=== PATIENT | female | born 1990 | race African-American/Black ===

== ENCOUNTER 2017-06-17 13:26 | Emergency (ER) | payer OTHER ==
[~2017-06-17] VITALS: Ht 165.1 cm; Wt 147.0 kg
[2017-06-17 13:31] VITALS: BP 148/96; PULSE 108; TEMP 37.1; O2SAT 98; Ht 165.1 cm; Wt 147.0 kg
[2017-06-17] MEDS ORDERED: METF-384 PO (14:18)
[2017-06-17] MEDS ORDERED: CITA20TA9 PO (14:18)
[2017-06-17] MEDS ORDERED: CEPH500C2 PO (14:23)
--- NOTE | 2017-06-17 20:00 | EMERGENCY ROOM VISIT NOTE ---
ED Visit Note First contact with patient: 13:34 Chief Complaint: Right big toe infection. History of Present Illness: Ms. Tariq is a 27-year-old black female who ambulates into the ED complaining of a possible infection of the right big toe. Patient reports she has a history of diabetes. Patient reports her symptoms started approximately 2 weeks ago when she noted mild swelling over the lateral great toe toenail border. She then noted a small amount of puslike drainage. She reports she has been squeezing the area and has been expressing pus. Over the last 2 weeks she has noted increasing redness and swelling and the amount of pus she is able to express out of the wound. Associated with the symptoms she reports she has an achy pain that sometimes becomes sharp with palpation and ambulation in the same area. She currently rates her discomfort 4/10. Her pain is nonradiating. Her pain worsens with palpation and flexion and extension of the interphalangeal joint. She has not identified any alleviating factors related to the pain. She has not taken any medications for pain prior to arrival at the hospital. Associated with her pain she reports intermittently she has been nauseated but she has not vomited, she has had one episode of watery stools and when her pain becomes severe she reports she has some mild dizziness and high blood pressure. She denies fevers, chills, sweats, other skin eruptions, other skin color changes, recent trauma/surgeries to the toe, toe/foot weakness/numbness/ tingling. Review of Systems: As noted above in history of present illness. At least body systems were reviewed and found to be negative as noted above. Past Medical History: As previously noted, pneumonia, unspecified stomach disorder, status post cholecystectomy and wisdom teeth extraction. Current Medications: Glucophage, Celexa. Allergies to Medications: Glyburide and morphine. Social History: Patient is currently employed; she feels safe in her home environment; she admits to tobacco use and denies alcohol use. Physical Examination: Vital Signs: Date Time Temp Pulse Resp B/P (MAP) Pulse Ox O2 Delivery O2 Flow Rate FiO2 06/17/17 13:31 37.1 108 18 148/96 98 Room Air GENERAL: 27-year-old female in mild distress due to pain, nontoxic-appearing, afebrile and hemodynamically stable. NEUROLOGICAL: Awake, alert and oriented to person, place and time. Answering questions appropriately and following commands. Normal gait. Good hand eye coordination. No focal motor sensory deficits. SKIN: Warm, dry and pink. Right Great Toe: Over the lateral border of the great toe there is mild to moderate erythema and edema with purulent drainage. This erythema and edema extends to the tip of the toe. No lymphangitis or apparent cellulitis. RIGHT FOOT: Soft tissue description noted above under skin. There is no pus or blood under the toenail. She has full range of motion in flexion and extension of the interphalangeal and the MCP joint against resistance. Throughout the toe the skin was warm and pink and capillary refill is brisk. She is able to distinguish light sensations to all dermatomes. ED Course: Patient is assessed as noted above. Patient's medication list was reviewed. Patient was offered pain medication and refused. Patient's toe was cleansed with antibacterial soap and water and covered with a dressing. Patient was placed in a postop shoe. Patient was educated about today's findings and instructed on her treatment plan ; she verbalized understanding and agreement with this plan. Clinical Impression: Right great toe infected ingrown toenail. Disposition: Patient discharged to home in stable condition; prior to departure she was reassessed and subjectively reported he was feeling better and rated her discomfort 2/10 peer Plan: Patient was encouraged alternate ibuprofen and acetaminophen as needed for pain. Patient was given a prescription for Keflex 500 mg 4 times a day for 7 days. Wound care and worsening signs of infection were discussed with the patient. Patient was encouraged to follow-up with family physician for referral to podiatry for definitive care and treatment. Patient was encouraged return the ED for worsening signs of infection, uncontrolled pain or any new/concerning symptoms.
== END 2017-06-17 14:28 | disposition home or self-care (01) ==
LOC: C.EDB 13:29
DX: L60.0 Ingrowing nail (principal); L03.031 Cellulitis of right toe; E11.9 Type 2 diabetes mellitus without complications; Z87.01 Personal history of pneumonia (recurrent); Z90.49 Acquired absence of other specified parts of digestive tract; Z79.84 Long term (current) use of oral hypoglycemic drugs; Z79.899 Other long term (current) drug therapy; Z88.5 Allergy status to narcotic agent; Z88.8 Allergy status to other drugs, medicaments and biological substances; Z72.0 Tobacco use

== ENCOUNTER 2020-01-28 07:39 | Inpatient (IN) ==
[2020-01-28] MEDS ORDERED: OXYTOCIN 30 UNITS/500 ML BAG IV PRN ×3 (08:09→18:52)
[2020-01-28] MEDS: LACTATED RINGER'S 1,000 ML IV PRN ×3 (08:35→13:37)
[2020-01-28 08:42] LABS: Hematocrit (blood only) 35.7 % (37-47); Hemoglobin 11.8 g/dL (12.0-16.0); Mean Corpuscular Hemoglobin 27.4 pg (25-34); Mean Corpuscular Hgb Conc 33.1 g/dL (32-36); Mean Corpuscular Volume 82.8 fL (80-100); Mean Platelet Volume 10.9 fL (7.4-10.4); Platelet Count 250 K/uL (130-400); RDW Coefficient of Variation 14.5 % (11.5-14.5); RDW Standard Deviation 44.2 fL (36.4-46.3); Red Blood Count 4.31 M/uL (4.2-5.4); White Blood Count 8.33 K/uL (4.8-10.8)
--- NOTE | 2020-01-28 09:50 | History & Physical Report ---
Date of Service January 28, 2020 Assessment & Plan (1) Type 2 diabetes mellitus affecting , antepartum: (2) History of hemorrhage, currently : (3) Maternal morbid obesity, antepartum: (4) Poorly controlled diabetes mellitus: admit, iv, labs. given starting bsg, will just monitor now and begin insulin protocol as needed. pitocin started and plan arom once with pattern. will get 2nd site with h/o pph and possible need for insulin protocol. discussed pp depresssion, pt feels she is in different "place" with this compared to prior. she is aware indication for this induction is her poor control of DM in . fhts categ 1. Admission and Anticipated Discharge Date Admission Date: January 28, 2020 History of Present Illness Chief Complaint: induction Primary Care Provider: Leo Pak, DO 29yo at 38 1/7 wks ega presents to L&D with above cc. She denies ctx, rom or vb. Has poorly controlled type 2 dm and rec for delivery at this time frame. PNC c/b 1. Pregest DM--on insulin, endo following, pp will go back to metformin 2. history of PPH 3. obesity 4. h/o PPD--prev used celexa pp, previously admitted for psychosis PNL RH Pos, RI, GBS neg, covid today neg OBH: x 3, sab x1 GYNH: nl paps, no stds Allergies Allergy/AdvReac Type Severity Reaction Status Date / Time morphine Allergy Intermediate ITCHY AND Verified 01/28/20 07:52 CHEST PAIN glyburide AdvReac Intermediate BLACK OUT Verified 01/28/20 07:52 oxycodone [From Percocet] AdvReac Mild Nausea Verified 01/28/20 07:52 Home Medications Medication Instructions Recorded Confirmed Type lancets #100 ea 07/23/18 01/27/20 Rx blood sugar diagnostic #100 ea 11/19/18 01/27/20 Rx prenat.vits,martin,[id number] 1 tab PO DAILY 06/09/19 01/28/20 History acetone (urine) test #50 ea 07/02/19 01/27/20 Rx blood sugar diagnostic #200 ea 07/02/19 01/27/20 Rx insulin aspart U-100 100 unit/mL 75 unit SQ .COMPLEX ml 12/18/19 01/28/20 History (3 mL) subcutaneous pen insulin glargine 100 unit/mL (3 30 unit SUBCUT HS ml 12/18/19 01/28/20 History mL) subcutaneous pen pen needle, diabetic 32 gauge x ea 12/18/19 01/27/20 History 5/32" breast pump #1 ea 01/13/20 01/27/20 Rx Patient History Medical History (Updated 01/28/20 @ 09:48 by Chantell Villeda MD, FACOG) Anxiety Bronchitis Depression Diabetes NIDDM Dyslipidemia Encounter for anatomic survey GERD (gastroesophageal reflux disease) CONTROLLED Gestational diabetes Hyperlipidemia Ingrown right big toenail Irritable bowel syndrome Migraine Morbid obesity Ovarian cyst LEFT PCOS (polycystic ovarian syndrome) complicated by pre-existing type 1 diabetes in first trimester Sciatica B/L (L>R) Sleep apnea NO DEVICE Smokes 1 pack of cigarettes per day Type 2 diabetes mellitus affecting in first trimester, antepartum Varicella vaccine Surgical History History of cholecystectomy History of colonoscopy History of salpingoophorectomy left History of wisdom tooth extraction Family History Mother Diabetes Father Diabetes Myocardial infarction Aunt Diabetes Uncle Diabetes Grandmother (Maternal) Diabetes Other Gallbladder disease Heart disease Hypertension Kidney disease Seizures Denies family history of Ovarian cancer Prostate cancer Breast cancer Colorectal cancer Social History Smoking Status: Former smoker Cigarettes Per Day: 10-20; INTERMITTENT X 11 YEARS; Second Hand Exposure: No; Do You Dip or Chew Tobacco: No; Tobacco Cessation Education Requested by Patient: No Hx Alcohol Use: No Hx Substance Use: No Preferred Language: Armenian Communication Ability: Effective Visual Impairment: No Limitations Hearing Ability: Normal Guide Dog Mobility Instructor Required: No Beliefs That Will Affect Care: None marital status: marital status details: Jhonathan Tariq 33, Current Living Situation: Spouse Current Living Situation Comment: lives with and children, 1dog current occupation: homemaker Other Information That Helps Us Care for You: No Feels Safe at Home: Yes Safety Concerns: Feels Safe At This Time Dental Care, Regularly: No Physical Activity Frequency: 1-2 Times per Week Seatbelt Use: always Sunscreen Use: Yes Assistive Devices: None Review of Systems as per Subjective / HPI; no fever Physical Exam Constitutional: WD/WN, vitals as above Respiratory: normal respiratory effort, lungs clear to auscultation Cardiovascular: Rate/Rhythm: regular rate and regular rhythm Gastrointestinal (Abdomen): Percussion/Palpation: abdomen soft (gravid and obese); abdomen nontender EFW 7-8# Musculoskeletal: +1 edema nontender calves Neurologic: grossly normal Psychiatric: A+Ox3, euthymic affect Genitourinary: OB Exam Monitor Tracing: + external FHT monitor used (130 mod variability), + external uterine monitor used (irreg), + category I and + normal FHT variability Was 3cm yesterday in office. Results & Data ([facility]) Vital Signs (Past 12 Hours) Vital Signs Temp Pulse Resp BP 01/28/20 09:30 75 140/81 01/28/20 08:39 85 117/67 01/28/20 07:50 99.1 F 87 20 122/69 Coding Level of Care Code None Diagnoses Type 2 diabetes mellitus affecting , antepartum O24.119 History of hemorrhage, currently O09.299 Maternal morbid obesity, antepartum O99.210; E66.01 Poorly controlled diabetes mellitus E11.65
[2020-01-28] MEDS ORDERED: ePHEDrine sulfate 50 MG/ML AMP ONE (11:14)
[2020-01-28] MEDS ORDERED: fentaNYL citrate 100 MCG/2 ML VIAL ONE (11:14)
[2020-01-28] MEDS ORDERED: SODIUM CHLORIDE 0.9% INJ 10 ML VIAL ONE (11:14)
[2020-01-28] MEDS ORDERED: BUPIVACAINE 0.25% 30 ML VIAL ONE (11:14)
[2020-01-28] MEDS ORDERED: fentaNYL 2MCG/ML ROPIVACAINE 1.25MG/ML 100 ML BAG EPI ONE (11:15)
--- NOTE | 2020-01-28 11:58 | Anesthesiology Consultation ---
Date of Service January 28, 2020 Assessment & Plan (1) Encounter for pre-operative examination: Chart Review Chart Review: Patient NOT seen in Pre Admission Testing and Acceptable Risk for Labor Epidural Consults Requested none ASA ASA3 Proposed Anesthesia Anesthesia Type: Labor Epidural Risk / Benefits Reviewed With: PT / POA / Parent / Guardian, Accepts Plan and Informed Consent Obtained History Height/Weight Height: 5 ft 5 in Weight: 136.078 kg Allergies Allergy/AdvReac Type Severity Reaction Status Date / Time morphine Allergy Intermediate ITCHY AND Verified 01/28/20 07:52 CHEST PAIN glyburide AdvReac Intermediate BLACK OUT Verified 01/28/20 07:52 oxycodone [From Percocet] AdvReac Mild Nausea Verified 01/28/20 07:52 Medications Home Medications Medication Instructions Recorded Confirmed Last Taken lancets #100 ea 07/23/18 01/27/20 Unknown blood sugar diagnostic #100 ea 11/19/18 01/27/20 Unknown prenat.vits,martin,[id number] 1 tab PO DAILY 06/09/19 01/28/20 01/27/20 09:30 acetone (urine) test #50 ea 07/02/19 01/27/20 Unknown blood sugar diagnostic #200 ea 07/02/19 01/27/20 Unknown insulin aspart U-100 100 unit/mL 75 unit SQ .COMPLEX ml 12/18/19 01/28/20 01/27/20 23:10 (3 mL) subcutaneous pen insulin glargine 100 unit/mL (3 30 unit SUBCUT HS ml 12/18/19 01/28/20 01/27/20 21:30 mL) subcutaneous pen pen needle, diabetic 32 gauge x ea 12/18/19 01/27/20 Unknown 5/32" breast pump #1 ea 01/13/20 01/27/20 Unknown Active Medications Generic Name Dose Route Start Last Admin Trade Name Freq PRN Reason Stop Dose Admin Oxytocin 30 units in 500 mls @ 7 mls/hr 01/28/20 08:09 01/28/20 11:00 Pitocin IV 01/30/20 08:08 0.42 units/hr .Q24H PRN 7 mls/hr Labor Induction/Augmentation Titration Protocol 0.42 UNITS/HR Lactated Ringer's 1,000 mls @ 125 mls/hr 01/28/20 08:09 01/28/20 13:37 Lr IV 01/30/20 08:08 999 mls/hr .Q8H PRN Administration L&D Protocol Protocol Dextrose 1,000 mls @ 100 mls/hr 01/28/20 12:26 01/28/20 12:37 D5w IV 02/27/20 12:25 100 mls/hr .Q10H PRN Administration BSG 180 or below Protocol NPO Date Last Intake of Fluids: 02/24/20 Time Last Intake of Fluids: 13:56 Date Last Intake of Solids: 01/28/20 Time Last Intake of Solids: 07:00 Past Medical History Medical History Anxiety Bronchitis Depression Diabetes NIDDM Dyslipidemia Encounter for anatomic survey GERD (gastroesophageal reflux disease) CONTROLLED Gestational diabetes Hyperlipidemia Ingrown right big toenail Irritable bowel syndrome Migraine Morbid obesity Ovarian cyst LEFT PCOS (polycystic ovarian syndrome) complicated by pre-existing type 1 diabetes in first trimester Sciatica B/L (L>R) Sleep apnea NO DEVICE Smokes 1 pack of cigarettes per day Type 2 diabetes mellitus affecting in first trimester, antepartum Varicella vaccine Exercise / Class Metabolic Activity III < 4 Walking/Shop/Light housework Past Family History Family History Mother Diabetes Father Diabetes Myocardial infarction Aunt Diabetes Uncle Diabetes Grandmother (Maternal) Diabetes Other Gallbladder disease Heart disease Hypertension Kidney disease Seizures Denies family history of Ovarian cancer Prostate cancer Breast cancer Colorectal cancer Past Surgical History Surgical History History of cholecystectomy History of colonoscopy History of salpingoophorectomy left History of wisdom tooth extraction Past Anesthesia History No Hx of Anesthesia Complications History of PONV No Hx of PONV Social History Smoking Status: Former smoker tobacco type: cigarettes Smoking cigarettes per day: 10-20; INTERMITTENT X 11 YEARS Do You Dip or Chew Tobacco: No Hx Alcohol Use: No Hx Substance Use: No Review of Systems Negative for chest pain or shortness of breath. Patient denies history of abnormal bleeding or bleeding disorder. Patient denies active use of anticoagulants other than low dose aspirin. Patient denies numbness, tingling or weakness in lower extremities. Physical Exam Vital Signs Last Vital Signs Temp 37.3 C 01/28/20 10:28 Pulse 121 H 01/28/20 13:54 Resp 18 01/28/20 13:37 BP 105/59 L 01/28/20 13:54 Pulse Ox 97 01/28/20 13:51 Constitutional + morbidly obese (gravid uterus) ENMT Mouth: no TMJ abnormality and oral opening not small Thyromental Distance: > or= 3.5 Finger Breadths Mallampati Class: III Neck normal visual inspection; neck extension not limited Respiratory normal respiratory effort Auscultation: lungs clear to auscultation bilaterally Cardiovascular Rate/Rhythm: regular rate and regular rhythm Heart Sounds: no murmur Neurologic moves all extremities Psychiatric Orientation: alert and oriented x 3 Testing Laboratory Results 01/28/20 08:18 Blood Type A Positive 01/28/20 08:18 Antibody Screen NEGATIVE 01/28/20 08:18 01/28/20 01/28/20 01/28/20 13:33 13:09 12:21 POC Glucose 91 72 69 L* 01/28/20 01/28/20 10:30 08:21 POC Glucose 80 105 H
[2020-01-28] MEDS ORDERED: SODIUM CHLORIDE 0.9% 1000ML 1,000 ML IV PRN (12:26)
[2020-01-28] MEDS ORDERED: INSULIN REGULAR 250 UNITS in SODIUM CHLORIDE 0.9% 247.5 ML IV PRN (12:26)
[2020-01-28] MEDS ORDERED: DEXTROSE 5% 1,000 ML IV PRN (12:26)
[2020-01-28] MEDS ORDERED: DEXTROSE 50% 50 ML SYRINGE IV PRN (12:26)
[2020-01-28] MEDS ORDERED: LIDOCAINE HCL 1% 20 ML VIAL ONE (13:04)
[2020-01-28] MEDS ORDERED: NALOXONE HCL 0.4 MG/1 ML VIAL/CARP IV PRN (13:21)
[2020-01-28] MEDS ORDERED: fentaNYL 2MCG/ML ROPIVACAINE 1.25MG/ML 100 ML BAG EPI PRN (13:21)
[2020-01-28] MEDS ORDERED: diphenhydrAMINE 50 MG/ML VIAL IV PRN (13:21)
[2020-01-28] MEDS ORDERED: PROMETHAZINE HCL 25 MG in SODIUM CHLORIDE 0.9% 50 ML IV PRN (13:21)
[2020-01-28] MEDS ORDERED: ONDANSETRON INJ 2 MG/ML 2 ML VIAL IV PRN (13:21)
[2020-01-28] MEDS ORDERED: NALOXONE HCL 1 MG in SODIUM CHLORIDE 0.9% 1000ML 1,000 ML IV PRN (13:21)
[2020-01-28] MEDS ORDERED: ePHEDrine sulfate 50 MG/ML AMP IV PRN (13:21)
--- NOTE | 2020-01-28 17:46 | Labor Progress Brief Note ---
Date of Service January 28, 2020 Subjective Reason For Note: Change In Status pt feeling pressure Assessment & Plan (1) Type 2 diabetes mellitus affecting , antepartum: (2) Poorly controlled diabetes mellitus: (3) History of hemorrhage, currently : (4) Maternal morbid obesity, antepartum: (5) Encounter for induction of labor: good cx change. c/w pit. fhts categ 1. Admission and Anticipated Discharge Date Admission Date: January 28, 2020 Physical Exam Constitutional: WD/WN, vitals as above Genitourinary: Manual OB Exam: + cervical dilation 8 cm, + cervical effacement 100% and + station -1 OB Exam Monitor Tracing: + external FHT monitor used (130 mod variability ), + external uterine monitor used (q2-4), + category I and + normal FHT variability Results & Data ([facility]) Vital Signs (Past 12 Hours) Vital Signs Temp Pulse Resp BP Pulse Ox 01/28/20 17:21 85 95 01/28/20 17:16 89 95 01/28/20 17:11 90 149/69 H 93 01/28/20 17:06 82 94 01/28/20 17:01 94 H 93 01/28/20 16:59 20 01/28/20 16:56 81 94 01/28/20 16:55 93 H 139/63 01/28/20 16:51 74 94 01/28/20 16:46 93 H 93 01/28/20 16:41 79 95 01/28/20 16:40 81 152/83 H 01/28/20 16:36 86 94 01/28/20 16:31 92 H 94 01/28/20 16:29 20 01/28/20 16:26 88 96 01/28/20 16:24 90 112/72 01/28/20 16:21 79 93 01/28/20 16:16 82 97 01/28/20 16:11 92 H 97 01/28/20 16:09 78 113/63 01/28/20 16:06 81 96 01/28/20 16:01 92 H 94 01/28/20 15:59 18 01/28/20 15:56 86 98 01/28/20 15:54 82 104/53 L 01/28/20 15:51 79 95 01/28/20 15:46 76 96 01/28/20 15:41 79 95 01/28/20 15:40 86 97/54 L 01/28/20 15:36 86 96 01/28/20 15:31 81 97 01/28/20 15:29 20 01/28/20 15:26 86 96 01/28/20 15:25 77 106/55 L 01/28/20 15:21 73 95 01/28/20 15:18 74 87 L 01/28/20 15:16 85 95 01/28/20 15:11 74 95 01/28/20 15:09 81 114/55 L 01/28/20 15:06 86 95 01/28/20 15:01 93 H 95 01/28/20 14:59 18 01/28/20 14:56 91 H 95 01/28/20 14:54 79 128/64 01/28/20 14:51 84 95 01/28/20 14:48 83 133/65 01/28/20 14:46 81 95 01/28/20 14:41 92 H 136/112 H 96 01/28/20 14:36 101 H 95 01/28/20 14:31 86 96 01/28/20 14:30 97.7 F 18 01/28/20 14:26 87 95 01/28/20 14:24 87 115/56 L 01/28/20 14:21 100 H 95 01/28/20 14:16 72 96 01/28/20 14:11 78 116/56 L 96 01/28/20 14:06 77 95 01/28/20 14:01 91 H 96 01/28/20 13:59 20 01/28/20 13:56 88 96 01/28/20 13:54 121 H 105/59 L 01/28/20 13:51 77 97 01/28/20 13:46 86 96 01/28/20 13:41 75 97 01/28/20 13:39 90 103/56 L 01/28/20 13:37 85 18 119/58 L 01/28/20 13:36 87 96 01/28/20 13:35 83 133/67 01/28/20 13:33 98 H 140/69 01/28/20 13:31 90 123/64 95 01/28/20 13:30 20 01/28/20 13:29 86 117/64 01/28/20 13:27 80 117/69 01/28/20 13:26 90 97 01/28/20 13:25 78 107/63 01/28/20 13:23 95 H 104/57 L 01/28/20 13:21 83 125/62 97 01/28/20 13:20 20 01/28/20 13:19 93 H 113/59 L 01/28/20 13:17 80 105/59 L 01/28/20 13:16 93 H 97 01/28/20 13:15 88 81/42 L 01/28/20 13:13 85 92/55 L 01/28/20 13:12 91 H 20 141/56 H 01/28/20 13:11 91 H 99 01/28/20 13:06 91 H 98 01/28/20 13:04 88 87 L 01/28/20 13:01 92 H 99 01/28/20 12:56 79 98 01/28/20 12:55 78 88 L 01/28/20 12:51 78 93 01/28/20 12:46 65 100 01/28/20 12:45 71 80 L 01/28/20 12:41 70 100 01/28/20 12:36 67 136/69 100 01/28/20 12:34 75 193/97 H 01/28/20 12:31 86 95 01/28/20 12:26 85 95 01/28/20 12:21 74 65 L 01/28/20 12:16 79 97 01/28/20 12:15 78 82 L 01/28/20 12:11 79 93 01/28/20 12:09 77 80 L 01/28/20 12:06 75 99 01/28/20 12:02 85 87 L 01/28/20 12:01 84 100 01/28/20 11:56 81 100 01/28/20 11:55 75 20 135/79 01/28/20 11:51 68 94 01/28/20 11:46 71 100 01/28/20 11:41 71 100 01/28/20 11:36 67 100 01/28/20 11:34 82 86 L 01/28/20 11:31 74 100 01/28/20 11:27 72 139/74 01/28/20 11:26 73 100 01/28/20 10:28 99.1 F 74 20 130/77 01/28/20 09:30 75 140/81 01/28/20 08:39 85 117/67 01/28/20 07:50 99.1 F 87 20 122/69 Coding Level of Care Code None Diagnoses Type 2 diabetes mellitus affecting , antepartum O24.119 Poorly controlled diabetes mellitus E11.65 History of hemorrhage, currently O09.299 Maternal morbid obesity, antepartum O99.210; E66.01 Encounter for induction of labor Z34.90
[2020-01-28] MEDS ORDERED: METHYLERGONOVINE MALEATE 0.2 MG/ML AMP ONE (18:31)
[2020-01-28] MEDS ORDERED: miSOPROStoL 200 MCG TAB ONE (18:33)
[2020-01-28] MEDS ORDERED: ACETAMINOPHEN 325 MG TAB PO PRN (18:52)
[2020-01-28] MEDS ORDERED: oxyCODONE/ACETAMINOPHEN 5mg/325mg TAB PO PRN (18:52)
--- NOTE | 2020-01-28 18:55 | Delivery Summary ---
Vaginal Delivery Summary Date of Service January 28, 2020 The patient dilated to complete and pushed to deliver a viable female infant Ap gars 8 and 9 via over intact perineum. Mouth and nose bulb suctioned at perineum.Loose nuchal x 1 reduced. Shoulders and body delivered with ease. Infant was vigorous and crying at . True knot noted. Cord clamped at 30 seconds of life and infant to maternal abdomen where the cord was then doubly clamped and cut. Placenta delivered spontaneously and intact, three-vessel cord. Hemostasis achieved with dilute pitocin and uterine massage, bimanual massage, uterus swept x 1 with no retained products. Cytotec 800mcg rectal and Methergine 0.2mg im x 1 given due to her history. Cervix and sulci intact. EBL 400 cc. Mother and baby stable recovery. [facility] Vaginal Delivery Charge Vaginal Delivery Codes: 53418 global code for the antepartum, delivery, and post-
[2020-01-28] MEDS ORDERED: DIPHTHERIA/TETANUS/PERTUSSIS 0.5 ML SYR/VIAL IM ONE (19:00)
[2020-01-28] MEDS ORDERED: miSOPROStoL 200 MCG TAB PR ONE (19:00)
[2020-01-28] MEDS ORDERED: METHYLERGONOVINE MALEATE 0.2 MG/ML AMP IM ONE (19:00)
[2020-01-28] MEDS ORDERED: BENZOCAINE 20% AER SPR 82.5 GM CAN EXT PRN (19:00)
[2020-01-28] MEDS ORDERED: SUPERCREAM 0.870% 15 GM JAR EXT PRN (19:00)
[2020-01-28] MEDS ORDERED: HYDROCORTISONE ACETATE 25 MG SUPP PR PRN (19:00)
[2020-01-28] MEDS ORDERED: OXYTOCIN 20 UNITS in LACTATED RINGER'S 1,000 ML IV SCH (19:15)
--- NOTE | 2020-01-28 19:23 | Anesthesia Procedure Note ---
Date of Service January 28, 2020 Anesthesia Post Epidural Note Vital Signs Vital Signs: Temp Pulse Resp BP Pulse Ox 36.8 C 89 18 122/55 L 97 01/28/20 18:55 01/28/20 19:10 01/28/20 18:55 01/28/20 19:10 01/28/20 18:46 Pain Intensity Bilateral Abdomen: Pain Intensity: 0 Notes Mental Status: alert / awake / arousable Nausea / Vomiting: adequately controlled Pain: adequately controlled Airway Patency, RR, SpO2: stable & adequate BP & HR: stable & adequate Hydration State: stable & adequate Neuraxial Anesthesia: was administered and sensory block is resolving Anesthetic Complications: no major complications apparent Epidural: Removed without complications and With tip intact
[2020-01-28] MEDS: IBUPROFEN 600 MG TAB PO PRN (22:09)
[2020-01-28] MEDS: DOCUSATE SODIUM 100 MG CAP PO SCH (22:10)
[2020-01-29] MEDS: IBUPROFEN 600 MG TAB PO PRN ×3 (04:16→15:20)
[2020-01-29 07:09] LABS: Hematocrit (blood only) 31.8 % (37-47); Hemoglobin 10.3 g/dL (12.0-16.0)
--- NOTE | 2020-01-29 07:48 | Obstetrical Progress Note ---
Date of Service <Roberto Escamilla MD - Last Filed: 01/29/20 07:48> January 29, 2020 Assessment & Plan <Roberto Escamilla MD - Last Filed: 01/29/20 07:48> (1) Encounter for induction of labor: A/P: Rachel Tariq is a 29 y/o female on PPD#1 following at 38+1 weeks. * Patient feels well today; eating well, voiding well, ambulating well * Mood is "okay" today; she is agreeable to a 1-2 week follow-up appointment to check in given her history of depression and psychosis * Will follow up with her safety instructor given history of pregestational diabetes * Pain well-controlled with ibuprofen 600mg q4h prn * PNL: Rh pos, RI, GBS neg, COVID neg * Routine postcesarean care: OOB, ambulation, diet progression as tolerated * After discharge, will have six-week follow-up with Dr Villeda Subjective <Roberto Escamilla MD - Last Filed: 01/29/20 07:48> Ambulation: ambulating normally Voiding: no voiding problems Passing Gas:: Yes Diet Tolerance:: regular diet Lochia:: Del Tariq is a 29 y/o female on PPD#1 following at 38+1 weeks. She reports feeling well overall this morning. Reports her mood is "okay" today. Mild abdominal cramping and 2/10 pain well managed on analgesics. Voiding well. Tolerating meals overnight without difficulty. Patient has been able to ambulate some. Has persistent lochia with some improvement this morning. Currently . Constitutional: no fever and no chills Respiratory: no cough and no dyspnea Cardiovascular: no chest pain, no palpitations and no edema Gastrointestinal: no nausea and no vomiting Genitourinary (female): no dysuria Physical Exam <Roberto Ecsamilla MD - Last Filed: 01/29/20 07:48> General: alert, oriented, no acute distress Cardiac: regular rate and rhythm, no murmurs appreciated Respiratory: lungs clear to auscultation bilaterally a/p, no wheezes/rales/rhonchi, no increased work of breathing, symmetrical chest rise, no respiratory distress Abdomen: soft, minimally tender, nondistended, bowel sounds present Uterus: uterine fundus firm, palpable 2 cm below umbilicus Lower extremities: no lower extremity edema or swelling, no deep calf pain, Bhargavi's negative bilaterally Constitutional no acute distress Respiratory normal respiratory effort, lungs clear to auscultation Cardiovascular RRR, no murmur, no edema Gastrointestinal (Abdomen) Inspection/Auscultation: normal bowel sounds Percussion/Palpation: abdomen soft Results & Data ([facility]) <Roberto Escamilla MD - Last Filed: 01/29/20 07:48> Vital Signs (Past 12 Hours) Vital Signs Temp Pulse Pulse Resp BP BP Pulse Ox 01/29/20 04:15 36.8 C 76 16 107/61 97 01/28/20 22:30 36.9 C 81 17 112/75 97 01/28/20 21:31 36.9 C 88 18 129/56 L 01/28/20 21:25 86 16 120/56 L 01/28/20 21:10 92 H 128/60 01/28/20 20:55 88 16 111/58 L 01/28/20 20:40 100 H 107/53 L 01/28/20 20:25 36.9 C 89 121/60 01/28/20 20:10 84 122/59 L 01/28/20 19:57 81 18 125/57 L <Chantell Villeda MD, FACOG - Last Filed: 01/29/20 08:25> Co-Signing Physician Notes Resident Physician Supervision Note: I was present with Dr. Escamilla during the history and exam. I discussed the case with the resident and agree with the findings and plan as documented in the note. Any exceptions or clarifications are listed here: doing well this am, says mood is good, no issues with vaginal bleeding, am bsg is 98, back on her metformin which is her usual outside of preg regimen. will plan 1-2 wk check in office re: mood. plan d/c later today if bsgs reasonable <200. will need to send metformin script. instructions reviewed. f/u 6wk pp check. rh pos, ri. . Documented By: Chantell Villeda MD, FACOG Resident Activity Tracking <Roberto Escamilla MD - Last Filed: 01/29/20 07:48> Resident Involvement: Resident Care Provided Care Provided: OB Delivery
[2020-01-29] MEDS: DOCUSATE SODIUM 100 MG CAP PO SCH (08:08)
[2020-01-29] MEDS: metFORMIN HCL 500 MG TAB PO SCH ×2 (08:08→17:33)
== END 2020-01-29 19:45 | disposition home or self-care (01) | DRG 807 ==
LOC: 4S1 07:39 → 4S2 22:00

== ENCOUNTER 2022-05-17 17:09 | Inpatient (IN) ==
--- NOTE | 2022-05-17 17:15 | ED Triage Note ---
Date of Service May 17, 2022 History of Present Illness This patient was briefly evaluated while in triage. An abbreviated physical exam was performed. This patient is a 32-year-old Female who presents to the ED for evaluation of PCOS, IBS, DM, TONY, GERD gastric bypass 2 months ago here for complaints of "fecal impaction" hasn't been able to move bowels since Saturday tried MOM yesterday, enema today with no relief, tried to manually disimpact afraid to strain Physical Exam GENERAL: NAD CARDIOVASCULAR: RRR RESPIRATORY: CTA ABDOMEN: BS x 4. Nontender to palpation. Initial orders for labs and / or imaging were placed and patient was placed in the waiting area until a bed is available. Please see further documentation for the full ED course.
--- NOTE | 2022-05-17 17:38 | XRay Report ---
KUB HISTORY: constipated "fecal impaction" COMPARISON: Abdomen and pelvis CT 04/07/2022. KUB 05/18/2021. FINDINGS: The bowel gas pattern is unremarkable. There are no dilated loops of small bowel to suggest an obstruction. No renal calculi. No ureteral calculi. No pneumoperitoneum or pneumatosis. Moderate fecal retention again noted. Prior cholecystectomy and gastric bypass. IMPRESSION: 1. Nonobstructive bowel gas pattern. 2. Moderate fecal retention, unchanged. ACT 112: Negative or not required by law. Electronically signed by: Gómez Montelongo M.D. 05/17/2022 5:36 PM
[2022-05-17 17:58] LABS: Basophils # (auto) 0.04 K/uL (0-0.2); Basophils % (auto) 0.6 %; Eosinophils % (auto) 1.4 %; Hematocrit (blood only) 37.3 % (37.0-47.0); Hemoglobin 12.2 g/dl (12.0-16.0); Immature Granulocytes # (auto) 0.01 K/uL (0.01-0.20); Immature Granulocytes % (auto) 0.1 %; Lymphocytes % (auto) 15.7 %; Mean Corpuscular Hemoglobin 27.1 pg (25.0-34.0); Mean Corpuscular Hgb Conc 32.7 g/dL (32.0-36.0); Mean Corpuscular Volume 82.9 fL (80.0-100.0); Mean Platelet Volume 11.8 fL (9.4-12.4); Monocytes # (auto) 0.47 K/uL (0.11-0.59); Monocytes % (auto) 6.7 %; Neutrophils % (auto) 75.5 %; Platelet Count 203 K/uL (130-400); RDW Coefficient of Variation 15.3 % (11.5-14.5); RDW Standard Deviation 46.6 fL (36.4-46.3); White Blood Count 7.02 K/ul (4.8-10.8)
[2022-05-17 18:12] LABS: Pregnancy Test, Serum Negative (Negative)
--- NOTE | 2022-05-17 18:17 | Emergency Department Note ---
Impression & Plan Large bowel obstruction, Abdominal pain, High serum chloride ED Provider Note NAME: CANDICE TARIQ AGE: 32 SEX: F : 1990 ARRIVES VIA: Walk-In INFORMANT: Patient ED PROVIDER(S): Miguel Montes De Oca DO CHIEF COMPLAINT: abdominal pain HPI: Patient is a 32-year-old female who presents to the ER for lower abdominal pain associated with nausea but no vomiting. Does have a past medical history of binge eating as well as PCOS, migraines, diabetes as well as gastric bypass. She notes that she has not had a bowel movement and has had nothing on the rectum for the past 24 hours. She has been feeling constipated for the past 2 days. No chest pain or shortness of breath. No dysuria, urgency, or frequency. No other exacerbating or remitting factors. PAST MEDICAL HISTORY:See Below PAST SURGICAL HISTORY:See Below FAMILY HISTORY:See Below SOCIAL HISTORY:See Below HOME MEDICATIONS:See Below ALLERGIES:See Below VITALS:See Below PHYSICAL EXAMINATION: GENERAL: Sitting up in bed, alert, well appearing, well nourished, no distress, non-toxic, morbidly obese EYE EXAM: normal conjunctiva. LUNGS: Clear to auscultation. Normal chest wall mechanics HEART: no murmurs, S1 normal and S2 normal ABDOMEN: abdomen soft, non-tender, normo-active bowel sounds, no masses, no rebound or guarding. BACK: Back is symmetrical on inspection and there is no deformity, no midline tenderness, no CVA tenderness. SKIN: no rashes and no bruising UPPER EXTREMITIES: upper extremities are grossly normal. LOWER EXTREMITIES: No pitting edema. NEURO EXAM: Normal sensorium, cranial nerves II-XII grossly intact, normal speech, no gross weakness of arms, no gross weakness of legs. MEDICAL DECISION MAKING: Patient is a 32-year-old female who presents the ER for abdominal pain. IV was established blood work was obtained. External records were reviewed. Labs show no significant leukocytosis or anemia. BMP with slightly elevated chloride. LFTs bilirubin and TSH was unremarkable. hCG was negative. UA was clean. COVID-negative. CT abdomen pelvis consistent with a partial large bowel obstruction. Did discuss with gastroenterology Dr. Lucia who recommends n.p.o. and will scope in the morning. Patient was updated at bedside. She declined pain medications. She was given IV fluids. Discussed with general surgery Skip Alamo who will follow the patient and evaluate in the ER. Did discuss also with the hospitalist Dr. Mk Rueda for further evaluation management and treatment. Triage Nursing notes reviewed. Limited review of prior medical records performed Vital Signs: reviewed and remarkable for HTN Differential diagnosis: Differential diagnoses includes but is not limited to gastritis, peptic ulcer disease, GERD, gallbladder disease, pancreatitis, small bowel obstruction, appendicitis, diverticulitis, hernia, urinary tract infection, torsion, perforation, trauma, infectious. ER treatment provided: See below Diagnostics interpreted by me include EKG and cardiac monitoring as listed below: -Cardiac Monitoring: An order was placed for continuous cardiac monitoring. The monitor shows a rate of 80 with sinus rhythm. -ECG: none -Laboratory studies:Interpreted by me as stated above in MDM and shown below. Imaging studies: Xrays: As interpreted by me:none CTs show: CT abdomen pelvis showed a large bowel obstruction CT per my read shows dilation of the rectum Consultation(s): As described in MDM discussed with general surgery, gastroenterology as well as the hospitalist Procedures:none Critical Care: None Past Med/Surg History Medical History Anxiety Depression Diabetes type 2, controlled GERD (gastroesophageal reflux disease) hx-"issues in the past, nothing currently"-CONTROLLED Irritable bowel syndrome Migraines hx-last one 3 months ago Morbid obesity Ovarian cyst LEFT PCOS (polycystic ovarian syndrome) Sciatica B/L (L>R) Sleep apnea cpap Surgical History History of cholecystectomy History of colonoscopy History of salpingoophorectomy left History of wisdom tooth extraction Hx of spinal fusion c4-c5, done at [facility]; ROM "is pretty good, as long as tip head back too far" S/P gastric bypass Family History Mother Diabetes Endometrial cancer Father Diabetes Myocardial infarction Aunt Diabetes Uncle Diabetes Grandmother (Maternal) Diabetes Father No problems noted. Family/Other BRCA positive maternal cousin Other Gallbladder disease Heart disease Hypertension Kidney disease Seizures Denies family history of Ovarian cancer Prostate cancer Breast cancer Colorectal cancer Social History Smoking Status: Never smoker Tobacco Type: Cigarettes Cigarettes Per Day: 10-20; INTERMITTENT X 11 YEARS; Second Hand Exposure: No; Hx Alcohol Use: No Hx Substance Use: No Preferred Language: Persian Communication Ability: Effective Visual Impairment: No Limitations Hearing Ability: Normal Activity Therapy Specialist Required: No Beliefs That Will Affect Care: None marital status: marital status details: Jhonathan Tariq 32, Current Living Situation: Spouse and Family Current Living Situation Comment: lives with and children, 1dog current occupational status: employed current occupation: working at [employer] Feels Safe at Home: Yes Childhood Exposure to Second-Hand Smoke: Yes Diet Comment: HIGH PROTEIN LIQUID DIET-JUST HAD GASTRIC BYPASS Dental Care, Regularly: No Physical Activity Frequency: 1-2 Times per Week Seatbelt Use: always Sunscreen Use: Yes Assistive Devices: Glasses and Other Allergies Allergies Allergy/AdvReac Type Severity Reaction Status Date / Time morphine Allergy Intermediate ITCHY AND Verified 05/17/22 18:59 CHEST PAIN glyburide AdvReac Intermediate BLACK OUT Verified 05/17/22 18:59 oxycodone [From Percocet] AdvReac Mild Nausea Verified 05/17/22 18:59 Home Meds Home Medications Medication Instructions Recorded Confirmed blood sugar diagnostic (OneTouch #10 ea 06/09/20 04/26/22 Ultra Blue Test Strip) acetaminophen 325 mg tablet 975 mg PO Q6H PRN Pain 03/19/22 05/17/22 omeprazole 20 mg capsule,delayed 20 mg PO DAILY 03/19/22 05/17/22 release simethicone 80 mg chewable tablet 160 mg PO Q6H PRN GI UPSET/GAS 03/19/22 05/17/22 DISCOMFORT cholecalciferol (vitamin D3) 125 125 mcg PO DAILY 04/26/22 05/17/22 mcg (5,000 unit) capsule multivitamin with iron 1 tab PO BID 04/26/22 05/17/22 calcium carbonate 600 mg-vitamin 1 tab PO TIDM 05/17/22 05/17/22 D3 10 mcg (400 unit) tablet (Calcium 600 + D(3)) Previous Rx's Medication Instructions Recorded CPAP Machine #1 ea 03/28/21 citalopram 20 mg tablet (Celexa) 20 mg PO QAM #90 tabs 04/06/22 flash glucose sensor (FreeStyle #1 ea 07/10/21 Raina 14 Day Sensor kit) citalopram 10 mg tablet 10 mg PO DAILY #30 tabs 03/22/22 metoclopramide HCl 10 mg tablet 10 mg PO Q8H PRN nausea and 04/07/22 (Reglan) vomiting #12 tabs Results & Data (ED) Vital Signs Vital Signs - 24 hr 05/17/22 17:12 05/17/22 20:07 Temperature 36.5 C Temperature Source Temporal Artery Scan Pulse Rate 81 Pulse Rate [Apical] 66 Pulse Rhythm Regular Respiratory Rate 20 18 Respiratory Effort / Characteristics Non-Labored Spontaneous Non-Labored Respiratory Depth Normal Normal Blood Pressure 165/86 H Blood Pressure [Right Arm] 145/84 H Blood Pressure Mean 112 Blood Pressure Mean [Right Arm] 104 Pulse Oximetry 97 99 Oxygen Delivery Method Room Air Room Air Sepsis Recent Fever Within 48 Hours No Sepsis New/Unexplained Change in Mental Status No Sepsis Action Taken by Nursing No Action Required Laboratory Data 05/17/22 17:47 05/17/22 17:47 Lab Results 05/17/22 05/17/22 05/17/22 Range/Units 17:47 17:47 17:47 WBC 7.02 (4.8-10.8) K/ul RBC 4.50 (4.20-5.40) M/uL Hgb 12.2 (12.0-16.0) g/dl Hct 37.3 (37.0-47.0) % MCV 82.9 (80.0-100.0) fL MCH 27.1 (25.0-34.0) pg MCHC 32.7 (32.0-36.0) g/dL RDW Std Deviation 46.6 H (36.4-46.3) fL RDW Coeff of Denis 15.3 H (11.5-14.5) % Plt Count 203 (130-400) K/uL MPV 11.8 (9.4-12.4) fL Immature Gran % (Auto) 0.1 % Neut % (Auto) 75.5 % Lymph % (Auto) 15.7 % Fannin % (Auto) 6.7 % Eos % (Auto) 1.4 % Baso % (Auto) 0.6 % Neut # (Auto) 5.30 (1.40-6.50) K/uL Lymph # (Auto) 1.10 L (1.2-3.4) K/uL Fannin # (Auto) 0.47 (0.11-0.59) K/uL Eos # (Auto) 0.10 (0-0.50) K/uL Baso # (Auto) 0.04 (0-0.2) K/uL Immature Gran # (Auto) 0.01 (0.01-0.20) K/uL Sodium 140 (136-145) mmol/L Potassium 3.7 (3.5-5.1) mmol/L Chloride 108 H (98-107) mmol/L Carbon Dioxide 25 (21-32) mmol/L Anion Gap 7 (3-11) BUN 11 (6-23) mg/dl Creatinine 0.62 (0.6-1.2) mg/dl Est Cr Clr Drug Dosing Not Reportable Est GFR ( Amer) 137.3 ml/min Est GFR (Non-Af Amer) 118.5 ml/min BUN/Creatinine Ratio 17.7 (10-20) Glucose 106 H (70-99(Fasting)) mg/dl Calcium 9.2 (8.6-10.3) mg/dl Total Bilirubin 0.4 (0.2-1.0) mg/dl AST 19 (13-39) U/L ALT 31 (7-52) U/L Alkaline Phosphatase 87 (34-104) U/L Total Protein 7.1 (6.0-8.3) gm/dl Albumin 4.3 (3.4-5.0) gm/dl Globulin 2.8 (2.5-4.0) gm/dl Albumin/Globulin Ratio 1.5 (0.9-2) TSH (0.300-4.500) uIu/ml HCG, Qual Negative (Negative) Urine Color Urine Appearance (Clear) Urine pH (4.5-7.5) Ur Specific [place] (1.000-1.030) Urine Protein (Negative) Urine Glucose (UA) (Negative) Urine Ketones (Negative) Urine Blood (Negative) Urine Nitrite (Negative) Urine Bilirubin (Negative) Urine Urobilinogen (Negative) Ur Leukocyte Esterase (Negative) SARS-CoV-2, RNA, NAAT (NEGATIVE) 05/17/22 05/17/22 05/17/22 Range/Units 17:47 17:55 19:45 WBC (4.8-10.8) K/ul RBC (4.20-5.40) M/uL Hgb (12.0-16.0) g/dl Hct (37.0-47.0) % MCV (80.0-100.0) fL MCH (25.0-34.0) pg MCHC (32.0-36.0) g/dL RDW Std Deviation (36.4-46.3) fL RDW Coeff of Denis (11.5-14.5) % Plt Count (130-400) K/uL MPV (9.4-12.4) fL Immature Gran % (Auto) % Neut % (Auto) % Lymph % (Auto) % [place] % (Auto) % Eos % (Auto) % Baso % (Auto) % Neut # (Auto) (1.40-6.50) K/uL Lymph # (Auto) (1.2-3.4) K/uL [place] # (Auto) (0.11-0.59) K/uL Eos # (Auto) (0-0.50) K/uL Baso # (Auto) (0-0.2) K/uL Immature Gran # (Auto) (0.01-0.20) K/uL Sodium (136-145) mmol/L Potassium (3.5-5.1) mmol/L Chloride (98-107) mmol/L Carbon Dioxide (21-32) mmol/L Anion Gap (3-11) BUN (6-23) mg/dl Creatinine (0.6-1.2) mg/dl Est Cr Clr Drug Dosing Est GFR ( Amer) ml/min Est GFR (Non-Af Amer) ml/min BUN/Creatinine Ratio (10-20) Glucose (70-99(Fasting)) mg/dl Calcium (8.6-10.3) mg/dl Total Bilirubin (0.2-1.0) mg/dl AST (13-39) U/L ALT (7-52) U/L Alkaline Phosphatase (34-104) U/L Total Protein (6.0-8.3) gm/dl Albumin (3.4-5.0) gm/dl Globulin (2.5-4.0) gm/dl Albumin/Globulin Ratio (0.9-2) TSH 3.142 (0.300-4.500) uIu/ml HCG, Qual (Negative) Urine Color Dark Yellow Urine Appearance Clear (Clear) Urine pH 5.5 (4.5-7.5) Ur Specific [place] 1.031 H (1.000-1.030) Urine Protein Negative (Negative) Urine Glucose (UA) Negative (Negative) Urine Ketones Trace H (Negative) Urine Blood Negative (Negative) Urine Nitrite Negative (Negative) Urine Bilirubin Negative (Negative) Urine Urobilinogen Negative (Negative) Ur Leukocyte Esterase Negative (Negative) SARS-CoV-2, RNA, NAAT NEGATIVE (NEGATIVE) Administered Medications Discontinued Medications Ioversol (Optiray 350 100ml) 83 ml IV ONCE ONE Stop: 05/17/22 19:13 Last Admin: 05/17/22 19:12 Dose: 83 ml Documented By: ROSALEE Imaging Data Radiologist's Impression: KUB X-Ray 05/17/22 17:16 KUB HISTORY: constipated "fecal impaction" COMPARISON: Abdomen and pelvis CT 04/07/2022. KUB 05/18/2021. FINDINGS: The bowel gas pattern is unremarkable. There are no dilated loops of small bowel to suggest an obstruction. No renal calculi. No ureteral calculi. No pneumoperitoneum or pneumatosis. Moderate fecal retention again noted. Prior cholecystectomy and gastric bypass. IMPRESSION: 1. Nonobstructive bowel gas pattern. 2. Moderate fecal retention, unchanged. ACT 112: Negative or not required by law. Electronically signed by: Gómez Montelongo M.D. 05/17/2022 5:36 PM Abdomen/Pelvis CT 05/17/22 18:[address] WITH IV CONTRAST CT DOSE: 997.97 mGy.cm HISTORY: lower abd pain TECHNIQUE: Multiaxial CT images of the abdomen and pelvis were performed follow ing the use of intravenous contrast. A dose lowering technique was utilized adhering to the principles of ALARA. COMPARISON STUDY: Abdomen and pelvis CT 04/07/2022. FINDINGS: There are trace bilateral pleural effusions. Mild dependent changes seen within the lungs posteriorly. No pneumoperitoneum. No pneumatosis. No acute fractures identified. There is mild body wall edema. Prior Lenore-en-Y gastric bypass. Cholecystectomy. Ill-defined hypodense area within the central liver adjacent to the jaziel hepatis likely represents focal fat. The main portal vein is patent. The pancreas, spleen, adrenal glands, and kidneys are unremarkable. No hydronephrosis. No retroperitoneal lymphadenopathy. Normal caliber abdominal aorta. The bladder is mildly distended. The uterus is unremarkable. 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 Focal moderate thickening within the rectum with perirectal fat stranding. This is best seen on images 376 through 405. There is also a focal stricture within the rectum on image 376. Proximal to this site of narrowing there is a large amount of stool within the mid to distal sigmoid colon which is mildly distended up to 7 cm. Therefore, this likely represents a partial large bowel obstruction. The transition point is due to the thickened rectum which could be due to a nonspecific proctitis or possibly a mass. The small bowel is normal in course and caliber. Normal appendix. IMPRESSION: 1. Focal moderate thickening within the rectum with perirectal fat stranding. T here is an associated transition point within the rectum with a large amount of stool within the mildly distended mid to distal sigmoid colon seen proximal to the transition point. Therefore, this is consistent with a partial large bowel obstruction. The transition point could be due to a nonspecific proctitis or rectal mass. Endoscopy recommended for further evaluation. 2. Trace bilateral pleural effusions. 3. Normal appendix. 4. Right ovarian dermoid, unchanged. ACT 112: Negative or not required by law. Electronically signed by: Gómez Montelongo M.D. 05/17/2022 7:33 PM Discharge Plan Visit Data Chief Complaint: Constipation Stated Complaint: FECAL IMPACTION ED Provider: Miguel Montes De Oca Discharge Problem: Large bowel obstruction, Abdominal pain, High serum chloride Patient Disposition: Admitted As Inpatient Discharge Instructions Interventions: ED Discharge Assessment Last Done: 05/17/22 21:39 Forms Stand Alone Forms: [employer] [facility] acquired by [employer] Prescriptions Prescriptions: No Action citalopram 10 mg tablet 10 mg PO DAILY Qty: 30 2RF Rx Instructions: take with 20mg tablet to total 30mg daily acetaminophen 325 mg tablet 975 mg PO Q6H PRN (Reason: Pain) omeprazole 20 mg capsule,delayed release(DR/EC) 20 mg PO DAILY simethicone 80 mg tablet,chewable 160 mg PO Q6H PRN (Reason: GI UPSET/GAS DISCOMFORT) citalopram [Celexa] 20 mg tablet 20 mg PO QAM Qty: 90 1RF Rx Instructions: TOTAL DOSE 30 MG--TAKES WITH 10 MG TAB. cholecalciferol (vitamin D3) 125 mcg (5,000 unit) capsule 125 mcg PO DAILY multivitamin with iron Tablet 1 tab PO BID (DME) CPAP Machine Misc See Rx Instructions .MEDSUPPLY Qty: 1 0RF Rx Instructions: CPAP 9 cm water pressure C flex setting #1 with heated humidfication, tubing, and supplies. ANNETTE: 99+ years. ([facility]) [email or web address] Raina 14 Day Sensor Kit See Rx Instructions miscellaneous .MEDSUPPLY Qty: 1 5RF Rx Instructions: As directed ([facility]) OneTouch Ultra Blue Test Strip Strip See Rx Instructions .ROUTE .MEDSUPPLY Qty: 10 Rx Instructions: As directed calcium carbonate-vitamin D3 [Calcium 600 + D(3)] 600 mg-10 mcg (400 unit) Tablet 1 tab PO TIDM metoclopramide HCl [Reglan] 10 mg tablet 10 mg PO Q8H PRN (Reason: nausea and vomiting) Qty: 12 0RF Referrals Referrals: Leo Pak DO [Primary Care Provider] -
[2022-05-17 18:21] LABS: Albumin Level 4.3 gm/dl (3.4-5.0); Anion Gap 7 (3-11); Bilirubin,Total 0.4 mg/dl (0.2-1.0); Calcium 9.2 mg/dl (8.6-10.3); Carbon Dioxide 25 mmol/L (21-32); Chloride 108 mmol/L (98-107); Potassium 3.7 mmol/L (3.5-5.1); Sodium 140 mmol/L (136-145)
[2022-05-17 18:26] LABS: Appearance Urine Clear (Clear); Bilirubin Urine Negative (Negative); Blood Urine Negative (Negative); Color Urine Dark Yellow; Glucose Urine UA Negative (Negative); Ketones Urine Trace (Negative); Leukocyte Esterase Urine Negative (Negative); Nitrite Urine Negative (Negative); Protein Urine Negative (Negative); Specific Gravity Urine 1.031 (1.000-1.030); Urobilinogen Urine Negative (Negative); pH Urine 5.5 (4.5-7.5)
[2022-05-17 18:27] LABS: Alanine Aminotransferase 31 U/L (7-52); Albumin Globulin Ratio 1.5 (0.9-2); Alkaline Phosphatase 87 U/L (34-104); Aspartate Aminotransferase 19 U/L (13-39); BUN Creatinine Ratio 17.7 (10-20); Blood Urea Nitrogen 11 mg/dl (6-23); Est GFR (African American) 137.3 ml/min; Est GFR (Non-African American) 118.5 ml/min; Globulin 2.8 gm/dl (2.5-4.0); Glucose 106 mg/dl (70-99(Fasting)); Total Protein 7.1 gm/dl (6.0-8.3)
[2022-05-17] MEDS ORDERED: OPTIRAY 350 100ml IV ONE (19:12)
--- NOTE | 2022-05-17 19:35 | CT Scan Report ---
ABDOMEN AND PELVIS CT WITH IV CONTRAST CT DOSE: 997.97 mGy.cm HISTORY: lower abd pain TECHNIQUE: Multiaxial CT images of the abdomen and pelvis were performed following the use of intrave nous contrast. A dose lowering technique was utilized adhering to the principles of ALARA. COMPARISON STUDY: Abdomen and pelvis CT 04/07/2022. FINDINGS: There are trace bilateral pleural effusions. Mild dependent changes seen within the lungs p osteriorly. No pneumoperitoneum. No pneumatosis. No acute fractures identified. There is mild body wa ll edema. Prior Lenore-en-Y gastric bypass. Cholecystectomy. Ill-defined hypodense area within the cent ral liver adjacent to the jaziel hepatis likely represents focal fat. The main portal vein is patent. The pancreas, spleen, adrenal glands, and kidneys are unremarkable. No hydronephrosis. No retroperito gilmer lymphadenopathy. Normal caliber abdominal aorta. The bladder is mildly distended. The uterus is unremarkable. 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 Focal moderate thickening within the rectum with p erirectal fat stranding. This is best seen on images 376 through 405. There is also a focal stricture within the rectum on image 376. Proximal to this site of narrowing there is a large amount of stool within the mid to distal sigmoid colon which is mildly distended up to 7 cm. Therefore, this likely r epresents a partial large bowel obstruction. The transition point is due to the thickened rectum whic h could be due to a nonspecific proctitis or possibly a mass. The small bowel is normal in course and caliber. Normal appendix. IMPRESSION: 1. Focal moderate thickening within the rectum with perirectal fat stranding. There is an associated transition point within the rectum with a large amount of stool within the mildly distended mid to di stal sigmoid colon seen proximal to the transition point. Therefore, this is consistent with a partia l large bowel obstruction. The transition point could be due to a nonspecific proctitis or rectal mas s. Endoscopy recommended for further evaluation. 2. Trace bilateral pleural effusions. 3. Normal appendix. 4. Right ovarian dermoid, unchanged. ACT 112: Negative or not required by law. Electronically signed by: Gómez Montelongo M.D. 05/17/2022 7:33 PM
--- NOTE | 2022-05-17 20:32 | Surgery Consultation ---
Date of Consultation May 17, 2022 Assessment & Plan (1) Large bowel obstruction: I discussed with the treating emergency room physician and he is having the patient admitted on the hospitalist service. The treating emergency room physician does note that he has discussed this case including the imaging with the aging box hand on-call. They feel that the patient would benefit from a flexible sigmoidoscopy tomorrow. They have requested a surgical evaluation of this patient. At the present time the patient has a benign abdominal exam and does not exhibit any peritoneal signs. There are currently no indications for surgical intervention but we will await the results of patient's sigmoidoscopy to see if patient merely has severe constipation if there is some type of colorectal mass contributing to her symptoms. Additional recommendations be forthcoming based on the results of this study. Supervising Physician Co-Signing Physician Notes I personally saw and evaluated the patient with Dennis Cullen PA-C and agree with the assessment and plan. 32-year-old female with proctitis versus rectal mass causing partial large bowel obstruction CT images and results were personally viewed by myself, she does have thickening of the rectal wall and a dilated rectosigmoid proximal to this She is passing some flatus and a small amount of stool She has been admitted to the medical service with a GI consult with plans for a flexible sigmoidoscopy for further evaluation She has had severe constipation issues since she was a young child, this certainly could be contributing to her clinical picture but agree with a mass needs to be ruled out No plans for any surgical intervention, but we will follow along of the results of the flexible sigmoidoscopy History of Present Illness Reason for Consultation: Partial large bowel obstruction History of Present Illness This is a 32-year-old female who presented to [facility] emergency department secondary to constipation. Patient says that she had history of irritable bowel syndrome and is also undergone a gastric bypass surgery. She notes that she has had some ongoing issues with constipation since her gastric bypass. Her most recent bowel movement was approximately 2 days ago. She is felt as though she had to strain significantly in order to accomplish this. She did note some rectal bleeding. Since that time she has had ongoing constipation and has been unable to have a bowel movement for approximate 2 days. She does note that her bowel movement 2 days ago was smaller in caliber than usual. She denies abdominal pain but does admit to some lower abdominal bloating and does report some intermittent nausea. She denies any fevers, shakes, or chills. In addition to her gastric bypass the patient has had a cholecystectomy and she has also had a left ovarian mass excised. She does note that this was a benign process. She does note a family history of diverticulitis but denies family history of colorectal cancer. Because of her ongoing constipation she presented to the emergency department as noted above. Since arrival to the hospital the patient has had labs and imaging which independently reviewed. A KUB showed moderate fecal retention with a nonobstructive bowel gas pattern. Patient underwent a CT scan abdomen pelvis that showed patient had moderate thickening within the rectal wall with perirectal fat stranding. There was a noted associated transition point within the rectum which contained a large amount of stool causing distention of the sigmoid colon proximal to this transition point. This was felt to represent a partial large bowel obstruction. Interpreting radiologist could not ascertain if the transition point represented a rectal mass. Labs include a CBC were white blood cell count, hemoglobin, hematocrit, and platelet count were normal. Chemistry profile showed sodium, potassium, BUN, and creatinine were normal. There is no elevation of patient's LFTs. A test was negative. Urinalysis is negative for infection. A COVID test was negative. At the time of my interview the patient was resting comfortably in bed and she was in no distress. Allergies Allergy/AdvReac Type Severity Reaction Status Date / Time morphine Allergy Intermediate ITCHY AND Verified 05/17/22 18:59 CHEST PAIN glyburide AdvReac Intermediate BLACK OUT Verified 05/17/22 18:59 oxycodone [From Percocet] AdvReac Mild Nausea Verified 05/17/22 18:59 Home Medications Medication Instructions Recorded Confirmed Type blood sugar diagnostic (OneTouch #10 ea 06/09/20 04/26/22 History Ultra Blue Test Strip) CPAP Machine #1 ea 03/28/21 04/26/22 Rx citalopram 20 mg tablet (Celexa) 20 mg PO QAM #90 tabs 05/24/21 05/17/22 Rx flash glucose sensor (FreeStyle #1 ea 07/10/21 04/26/22 Rx Raina 14 Day Sensor kit) acetaminophen 325 mg tablet 975 mg PO Q6H PRN Pain 03/19/22 05/17/22 History omeprazole 20 mg capsule,delayed 20 mg PO DAILY 03/19/22 05/17/22 History release simethicone 80 mg chewable tablet 160 mg PO Q6H PRN GI UPSET/GAS 03/19/22 05/17/22 History DISCOMFORT citalopram 10 mg tablet 10 mg PO DAILY #30 tabs 03/22/22 05/17/22 Rx metoclopramide HCl 10 mg tablet 10 mg PO Q8H PRN nausea and 04/07/22 05/17/22 Rx (Reglan) vomiting #12 tabs cholecalciferol (vitamin D3) 125 125 mcg PO DAILY 04/26/22 05/17/22 History mcg (5,000 unit) capsule multivitamin with iron 1 tab PO BID 04/26/22 05/17/22 History calcium carbonate 600 mg-vitamin 1 tab PO TIDM 05/17/22 05/17/22 History D3 10 mcg (400 unit) tablet (Calcium 600 + D(3)) Patient History Medical History Anxiety Depression Diabetes type 2, controlled GERD (gastroesophageal reflux disease) hx-"issues in the past, nothing currently"-CONTROLLED Irritable bowel syndrome Migraines hx-last one 3 months ago Morbid obesity Ovarian cyst LEFT PCOS (polycystic ovarian syndrome) Sciatica B/L (L>R) Sleep apnea cpap Surgical History History of cholecystectomy History of colonoscopy History of salpingoophorectomy left History of wisdom tooth extraction Hx of spinal fusion c4-c5, done at [facility]; ROM "is pretty good, as long as tip head back too far" S/P gastric bypass Family History Mother Diabetes Endometrial cancer Father Diabetes Myocardial infarction Aunt Diabetes Uncle Diabetes Grandmother (Maternal) Diabetes Father No problems noted. Family/Other BRCA positive maternal cousin Other Gallbladder disease Heart disease Hypertension Kidney disease Seizures Denies family history of Ovarian cancer Prostate cancer Breast cancer Colorectal cancer Social History Smoking Status: Former smoker Tobacco Type: Cigarettes Cigarettes Per Day: 10-20; INTERMITTENT X 11 YEARS; Second Hand Exposure: No; Do You Dip or Chew Tobacco: No; Tobacco Cessation Education Requested by Patient: No Hx Alcohol Use: No Hx Substance Use: No Preferred Language: Colombian Communication Ability: Effective Visual Impairment: No Limitations Hearing Ability: Normal Transformer Assembly Supervisor Required: No Beliefs That Will Affect Care: None marital status: marital status details: Jhonathan Tariq 32, Current Living Situation: Spouse Current Living Situation Comment: lives with and children, 1dog current occupational status: employed current occupation: working at [employer] pre-[employer] Other Information That Helps Us Care for You: No Feels Safe at Home: Yes Safety Concerns: Feels Safe At This Time Childhood Exposure to Second-Hand Smoke: Yes Diet Comment: HIGH PROTEIN LIQUID DIET-JUST HAD GASTRIC BYPASS Dental Care, Regularly: No Physical Activity Frequency: 1-2 Times per Week Seatbelt Use: always Sunscreen Use: Yes Assistive Devices: None Review of Systems Constitutional: no fever and no chills Eyes: no eye pain Ear, Nose, Mouth, Throat: no ear pain Respiratory: no cough and no dyspnea Cardiovascular: no chest pain Gastrointestinal: as per Subjective / HPI Genitourinary: no dysuria Musculoskeletal: no back pain Integumentary: no rash Neurologic: no localized weakness Physical Exam Physical Exam: With a female nurse telephone engineer present my attending physician Dr. Alamo performed a rectal examination. He notes that he did not feel any rectal masses. He notes that he did feel some stool in the rectal vault but it was located too far into the rectum and was unable to be disimpacted by hand. Please refer to Dr. Aalmo's attending section of this note for further details regarding this part of the examination Constitutional: well developed and well nourished; no acute distress Eyes: no conjunctival abnormality ENMT: Mouth: no oropharynx abnormality Neck: trachea midline Respiratory: normal respiratory effort; no respiratory distress and no labored breathing Cardiovascular: Rate/Rhythm: regular rate and regular rhythm Vessels: dorsalis pedis pulses present Gastrointestinal (Abdomen): Patient's abdomen is rotund but it is soft and nonrigid. There is no rebound tenderness or guarding. There is no pain with palpation. Musculoskeletal: No calf tenderness Skin: no rashes Neurologic: moves all extremities Psychiatric: A+Ox3, euthymic affect Results & Data Vital Signs (Past 12 Hours) Vital Signs Temp Pulse Pulse Resp BP BP Pulse Ox 05/17/22 20:07 66 18 145/84 H 99 05/17/22 17:12 36.5 C 81 20 165/86 H 97 O2 Del Method 05/17/22 20:07 Room Air 05/17/22 17:12 Room Air PG Care Time/CCT Total # of Minutes Spent Total Time Spent with Patient: Total time spent is greater than 50% in coordination of care (as documented) at patient's floor/unit and/or counseling patient: Coding Level of Care Code 58619 IN/OBS CONSULT LVL 5,80M Diagnoses Large bowel obstruction K56.609
--- NOTE | 2022-05-17 20:52 | History & Physical Report ---
Date of Service May 17, 2022 Assessment & Plan (1) Large bowel obstruction: Plan: 32 yo female with PMHx metabolic syndrome, PCOS, depression, anxiety, binge eating disorder, cholecystectomy, sleep apnea, IBS, migraines, GERD, DM2, gastric bypass surgery presented with 2 days of constipation. #Large bowel obstruction #h/o gastric bypass surgery (Feb 2022) #h/o binge eating disorder -2 days constipation with abd discomfort despite laxative use. Suspicion of LBO 2/2 proctitis or rectal mass. -CT A/P: Focal moderate thickening within the rectum with perirectal fat stranding. Associated transition point within the rectum with a large amount of stool within the mildly distended mid to distal sigmoid colon seen proximal to the transition point. -GI and gen surg following -flexible sigmoidoscopy in am for further evaluation -NPO, IVF @ 150 ml/hr, IV tylenol, IV zofran, IV protonix -hold home meds DVT ppx: SCDs, ambulation FEN/GI: NPO, IVF @ 150 ml/hr Code Status: Full Dispo: med surg (2) Depression with anxiety: (3) Binge eating disorder: (4) Severe obstructive sleep apnea: (5) PCOS (polycystic ovarian syndrome): (6) Irritable bowel syndrome: (7) Migraines: (8) GERD (gastroesophageal reflux disease): (9) Diabetes type 2, controlled: (10) Morbid obesity: History of Present Illness Chief Complaint: constipated Primary Care Provider: Leo Pak, DO 32 yo female with PMHx metabolic syndrome, PCOS, depression, anxiety, binge eating disorder, sleep apnea, IBS, migraines, GERD, DM2, gastric bypass surgery presented with 2 days of constipation. Associated abdominal discomfort and bloating with mild nausea. Denies fevers, fatigue, chest pain, sob, dysuria, vomiting. Tried taking milk of magnesia yesterday and fleet enema without resolve. Of note, pt had gastric bypass surgery Feb 2022 and since BMs have been regular until now. Allergies Allergy/AdvReac Type Severity Reaction Status Date / Time morphine Allergy Intermediate ITCHY AND Verified 05/18/22 12:26 CHEST PAIN glyburide AdvReac Intermediate BLACK OUT Verified 05/18/22 12:26 oxycodone [From Percocet] AdvReac Mild Nausea Verified 05/18/22 12:26 Home Medications Medication Instructions Recorded Confirmed Type blood sugar diagnostic (OneTouch #10 ea 06/09/20 04/26/22 History Ultra Blue Test Strip) CPAP Machine #1 ea 03/28/21 04/26/22 Rx citalopram 20 mg tablet (Celexa) 20 mg PO QAM #90 tabs 05/24/21 05/17/22 Rx flash glucose sensor (FreeStyle #1 ea 07/10/21 04/26/22 Rx Raina 14 Day Sensor kit) acetaminophen 325 mg tablet 975 mg PO Q6H PRN Pain 03/19/22 05/17/22 History omeprazole 20 mg capsule,delayed 20 mg PO DAILY 03/19/22 05/17/22 History release simethicone 80 mg chewable tablet 160 mg PO Q6H PRN GI UPSET/GAS 03/19/22 05/17/22 History DISCOMFORT citalopram 10 mg tablet 10 mg PO DAILY #30 tabs 03/22/22 05/17/22 Rx metoclopramide HCl 10 mg tablet 10 mg PO Q8H PRN nausea and 04/07/22 05/17/22 Rx (Reglan) vomiting #12 tabs cholecalciferol (vitamin D3) 125 125 mcg PO DAILY 04/26/22 05/17/22 History mcg (5,000 unit) capsule multivitamin with iron 1 tab PO BID 04/26/22 05/17/22 History calcium carbonate 600 mg-vitamin 1 tab PO TIDM 05/17/22 05/17/22 History D3 10 mcg (400 unit) tablet (Calcium 600 + D(3)) ondansetron HCl 4 mg tablet 4 mg PO Q6H PRN nausea and 05/18/22 Rx vomiting #20 tabs polyethylene glycol 3350 17 85 g PO DAILY 4 days #340 grams 05/18/22 Rx gram/dose oral powder (Miralax) Past Med/Surg History Medical History Anxiety Depression Diabetes type 2, controlled GERD (gastroesophageal reflux disease) hx-"issues in the past, nothing currently"-CONTROLLED Irritable bowel syndrome Migraines hx-last one 3 months ago Morbid obesity Ovarian cyst LEFT PCOS (polycystic ovarian syndrome) Sciatica B/L (L>R) Sleep apnea cpap Surgical History History of cholecystectomy History of colonoscopy History of salpingoophorectomy left History of wisdom tooth extraction Hx of spinal fusion c4-c5, done at [facility]; ROM "is pretty good, as long as tip head back too far" S/P gastric bypass Family History Mother Diabetes Endometrial cancer Father Diabetes Myocardial infarction Aunt Diabetes Uncle Diabetes Grandmother (Maternal) Diabetes Father No problems noted. Family/Other BRCA positive maternal cousin Other Gallbladder disease Heart disease Hypertension Kidney disease Seizures Denies family history of Ovarian cancer Prostate cancer Breast cancer Colorectal cancer Social History Smoking Status: Former smoker Tobacco Type: Cigarettes Cigarettes Per Day: 10-20; INTERMITTENT X 11 YEARS; Second Hand Exposure: No; Hx Alcohol Use: No Hx Substance Use: No Preferred Language: Kazakh Communication Ability: Effective Visual Impairment: No Limitations Hearing Ability: Normal Investigation Lieutenant Required: No Beliefs That Will Affect Care: None marital status: marital status details: Jhonathan Tariq 32, Current Living Situation: Spouse Current Living Situation Comment: lives with and children, 1dog current occupational status: employed current occupation: working at [employer] Feels Safe at Home: Yes Childhood Exposure to Second-Hand Smoke: Yes Diet Comment: HIGH PROTEIN LIQUID DIET-JUST HAD GASTRIC BYPASS Dental Care, Regularly: No Physical Activity Frequency: 1-2 Times per Week Seatbelt Use: always Sunscreen Use: Yes Assistive Devices: None Review of Systems Review of Systems: All systems reviewed & are unremarkable except as noted in HPI & below Physical Exam Physical Exam: Constitutional: in no acute distress, pleasant. AOx3. Vitals as above. HEENT: No scleral injection or discharge. Moist mucous membranes. Neck: Supple without lymphadenopathy or thyromegaly. Trachea midline. Lungs: Clear to auscultation bilaterally with good effort. Cardiac: Regular rate and rhythm. No murmurs.No extremity edema. 2+ distal peripheral pulses. Abdomen: Hypoactive bowel sounds. Soft and nondistended.Mildly tender LLQ. No guarding or rebound tenderness. No hepatosplenomegaly. MSK: No cyanosis or clubbing. Extremities motor strength 5/5. Skin: No rashes, warm, dry. Neurologic: no focal deficits Results & Data Results & Data Vital Signs (Past 12 Hours) Vital Signs Temp Pulse Pulse Resp BP BP Pulse Ox 05/17/22 20:07 66 18 145/84 H 99 05/17/22 17:12 36.5 C 81 20 165/86 H 97 O2 Del Method 05/17/22 20:07 Room Air 05/17/22 17:12 Room Air Laboratory Results Laboratory Results WBC 7.02 K/ul (4.8-10.8) 05/17/22 17:47 RBC 4.50 M/uL (4.20-5.40) 05/17/22 17:47 Hgb 12.2 g/dl (12.0-16.0) 05/17/22 17:47 Hct 37.3 % (37.0-47.0) 05/17/22 17:47 MCV 82.9 fL (80.0-100.0) 05/17/22 17:47 MCH 27.1 pg (25.0-34.0) 05/17/22 17:47 MCHC 32.7 g/dL (32.0-36.0) 05/17/22 17:47 RDW Std Deviation 46.6 fL (36.4-46.3) H 05/17/22 17:47 RDW Coeff of Denis 15.3 % (11.5-14.5) H 05/17/22 17:47 Plt Count 203 K/uL (130-400) 05/17/22 17:47 MPV 11.8 fL (9.4-12.4) 05/17/22 17:47 Immature Gran % (Auto) 0.1 % 05/17/22 17:47 Neut % (Auto) 75.5 % 05/17/22 17:47 Lymph % (Auto) 15.7 % 05/17/22 17:47 [place] % (Auto) 6.7 % 05/17/22 17:47 Eos % (Auto) 1.4 % 05/17/22 17:47 Baso % (Auto) 0.6 % 05/17/22 17:47 Neut # (Auto) 5.30 K/uL (1.40-6.50) 05/17/22 17:47 Lymph # (Auto) 1.10 K/uL (1.2-3.4) L 05/17/22 17:47 [place] # (Auto) 0.47 K/uL (0.11-0.59) 05/17/22 17:47 Eos # (Auto) 0.10 K/uL (0-0.50) 05/17/22 17:47 Baso # (Auto) 0.04 K/uL (0-0.2) 05/17/22 17:47 Immature Gran # (Auto) 0.01 K/uL (0.01-0.20) 05/17/22 17:47 Sodium 140 mmol/L (136-145) 05/17/22 17:47 Potassium 3.7 mmol/L (3.5-5.1) 05/17/22 17:47 Chloride 108 mmol/L (98-107) H 05/17/22 17:47 Carbon Dioxide 25 mmol/L (21-32) 05/17/22 17:47 Anion Gap 7 (3-11) 05/17/22 17:47 BUN 11 mg/dl (6-23) 05/17/22 17:47 Creatinine 0.62 mg/dl (0.6-1.2) 05/17/22 17:47 Est Cr Clr Drug Dosing Not Reportable 05/17/22 17:47 Est GFR ( Amer) 137.3 ml/min 05/17/22 17:47 Est GFR (Non-Af Amer) 118.5 ml/min 05/17/22 17:47 BUN/Creatinine Ratio 17.7 (10-20) 05/17/22 17:47 Glucose 106 mg/dl (70-99(Fasting)) H 05/17/22 17:47 Calcium 9.2 mg/dl (8.6-10.3) 05/17/22 17:47 Total Bilirubin 0.4 mg/dl (0.2-1.0) 05/17/22 17:47 AST 19 U/L (13-39) 05/17/22 17:47 ALT 31 U/L (7-52) 05/17/22 17:47 Alkaline Phosphatase 87 U/L (34-104) 05/17/22 17:47 Total Protein 7.1 gm/dl (6.0-8.3) 05/17/22 17:47 Albumin 4.3 gm/dl (3.4-5.0) 05/17/22 17:47 Globulin 2.8 gm/dl (2.5-4.0) 05/17/22 17:47 Albumin/Globulin Ratio 1.5 (0.9-2) 05/17/22 17:47 TSH 3.142 uIu/ml (0.300-4.500) 05/17/22 17:47 HCG, Qual Negative (Negative) 05/17/22 17:47 Urine Color Dark Yellow 05/17/22 17:55 Urine Appearance Clear (Clear) 05/17/22 17:55 Urine pH 5.5 (4.5-7.5) 05/17/22 17:55 Ur Specific [place] 1.031 (1.000-1.030) H 05/17/22 17:55 Urine Protein Negative (Negative) 05/17/22 17:55 Urine Glucose (UA) Negative (Negative) 05/17/22 17:55 Urine Ketones Trace (Negative) H 05/17/22 17:55 Urine Blood Negative (Negative) 05/17/22 17:55 Urine Nitrite Negative (Negative) 05/17/22 17:55 Urine Bilirubin Negative (Negative) 05/17/22 17:55 Urine Urobilinogen Negative (Negative) 05/17/22 17:55 Ur Leukocyte Esterase Negative (Negative) 05/17/22 17:55 SARS-CoV-2, RNA, NAAT NEGATIVE (NEGATIVE) 05/17/22 19:45 Impressions KUB X-Ray 05/17/22 17:16 KUB HISTORY: constipated "fecal impaction" COMPARISON: Abdomen and pelvis CT 04/07/2022. KUB 05/18/2021. FINDINGS: The bowel gas pattern is unremarkable. There are no dilated loops of small bowel to suggest an obstruction. No renal calculi. No ureteral calculi. No pneumoperitoneum or pneumatosis. Moderate fecal retention again noted. Prior cholecystectomy and gastric bypass. IMPRESSION: 1. Nonobstructive bowel gas pattern. 2. Moderate fecal retention, unchanged. ACT 112: Negative or not required by law. Electronically signed by: Gómez Montelongo M.D. 05/17/2022 5:36 PM Abdomen/Pelvis CT 05/17/22 18:[address] WITH IV CONTRAST CT DOSE: 997.97 mGy.cm HISTORY: lower abd pain TECHNIQUE: Multiaxial CT images of the abdomen and pelvis were performed follow ing the use of intravenous contrast. A dose lowering technique was utilized adhering to the principles of ALARA. COMPARISON STUDY: Abdomen and pelvis CT 04/07/2022. FINDINGS: There are trace bilateral pleural effusions. Mild dependent changes seen within the lungs posteriorly. No pneumoperitoneum. No pneumatosis. No acute fractures identified. There is mild body wall edema. Prior Lenore-en-Y gastric bypass. Cholecystectomy. Ill-defined hypodense area within the central liver adjacent to the jaziel hepatis likely represents focal fat. The main portal vein is patent. The pancreas, spleen, adrenal glands, and kidneys are unremarkable. No hydronephrosis. No retroperitoneal lymphadenopathy. Normal caliber abdominal aorta. The bladder is mildly distended. The uterus is unremarkable. 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 Focal moderate thickening within the rectum with perirectal fat stranding. This is best seen on images 376 through 405. There is also a focal stricture within the rectum on image 376. Proximal to this site of narrowing there is a large amount of stool within the mid to distal sigmoid colon which is mildly distended up to 7 cm. Therefore, this likely represents a partial large bowel obstruction. The transition point is due to the thickened rectum which could be due to a nonspecific proctitis or possibly a mass. The small bowel is normal in course and caliber. Normal appendix. IMPRESSION: 1. Focal moderate thickening within the rectum with perirectal fat stranding. There is an associated transition point within the rectum with a large amount of stool within the mildly distended mid to distal sigmoid colon seen proximal to the transition point. Therefore, this is consistent with a partial large bowel obstruction. The transition point could be due to a nonspecific proctitis or rectal mass. Endoscopy recommended for further evaluation. 2. Trace bilateral pleural effusions. 3. Normal appendix. 4. Right ovarian dermoid, unchanged. ACT 112: Negative or not required by law. Electronically signed by: Gómez Montelongo M.D. 05/17/2022 7:33 PM Code Status & VTE Plan VTE Prophylaxis Plan VTE Prophylaxis will be ordered: Yes Supervising Physician Co-Signing Physician Notes Attending addendum: I have physically seen this patient, have supervised the medical residents activities, and agree with the H&P unless as otherwise noted. Assessment and Plan: Large bowel obstruction/status post gastric bypass surgery 03-12/binge eating disorder-- NPO Fecal retention on CT along with possible area of colitis/proctitis Consult gastroenterology Consult general surgery NSS at 150 mils per hour Acetaminophen 1 g IV every 8 hours. Mild pain or fever Zofran 4 mg IV every 6 hours as needed for nausea or vomiting Pantoprazole 40 mg IV daily Remaining orders and notations as noted Resident Activity Tracking Resident Involvement: Resident Care Provided Care Provided: Adult [facility] Medicine
[2022-05-17] MEDS ORDERED: ACETAMINOPHEN 1,000 MG/100 ML VIAL IV PRN (22:18)
[2022-05-17] MEDS ORDERED: ONDANSETRON INJ 2 MG/ML 2 ML VIAL IV PRN (22:18)
[2022-05-17] MEDS: SODIUM CHLORIDE 0.9% 1000ML 1,000 ML IV SCH (22:56)
[2022-05-18] MEDS: SODIUM CHLORIDE 0.9% 1000ML 1,000 ML IV SCH ×2 (04:57→13:34)
--- NOTE | 2022-05-18 07:24 | Hospitalist Progress Note ---
Date of Service May 18, 2022 Assessment & Plan (1) Large bowel obstruction: Plan: 32 yo female with PMHx metabolic syndrome, PCOS, depression, anxiety, binge eating disorder, cholecystectomy, sleep apnea, IBS, migraines, GERD, DM2, gastric bypass surgery presented with 2 days of constipation. #Large bowel obstruction #h/o gastric bypass surgery (Feb 2022) #h/o binge eating disorder -2 days constipation with abd discomfort despite laxative use. Suspicion of LBO 2/2 proctitis or rectal mass. -CT A/P: Focal moderate thickening within the rectum with perirectal fat stranding. Associated transition point within the rectum with a large amount of stool within the mildly distended mid to distal sigmoid colon seen proximal to the transition point. -GI and gen surg following -flexible sigmoidoscopy for further evaluation -NPO, IVF @ 150 ml/hr, IV tylenol, IV zofran, IV protonix -hold home meds DVT ppx: SCDs, ambulation FEN/GI: NPO, IVF @ 150 ml/hr Code Status: Full Dispo: med surg (2) Depression with anxiety: (3) Binge eating disorder: (4) Severe obstructive sleep apnea: (5) PCOS (polycystic ovarian syndrome): (6) Irritable bowel syndrome: (7) Migraines: (8) GERD (gastroesophageal reflux disease): (9) Diabetes type 2, controlled: (10) Morbid obesity: Admission and Anticipated Discharge Date Admission Date: May 17, 2022 Subjective Notes intermittent nausea. No vomiting. Reports continued pain worse when she feels she has to have a BM. Patient to have sigmoidoscopy. Review of Systems Review of Systems: See HPI Physical Exam Physical Exam: Gen: well appearing female in NAD HEENT: AT NC Resp: CTAB no wheezing no increased work of breathing CV: RRR no m/r/g clinically well perfused Abd: soft, non-tender, mildly distended, + BS Psych: appropriate mood and affect Neuro: alert and oriented Skin: no rashes or bruising MSK: no gross deformities Results & Data Results & Data Vital Signs (Past 12 Hours) Vital Signs Temp Pulse Resp BP Pulse Ox O2 Del Method 05/17/22 22:08 36.8 C 63 18 122/80 99 Room Air 05/17/22 20:07 66 18 145/84 H 99 Room Air Laboratory Results 05/18/22 05/17/22 05/17/22 Range/Units 12:25 19:45 17:55 WBC (4.8-10.8) K/ul RBC (4.20-5.40) M/uL Hgb (12.0-16.0) g/dl Hct (37.0-47.0) % MCV (80.0-100.0) fL MCH (25.0-34.0) pg MCHC (32.0-36.0) g/dL RDW Std Deviation (36.4-46.3) fL RDW Coeff of Denis (11.5-14.5) % Plt Count (130-400) K/uL MPV (9.4-12.4) fL Immature Gran % (Auto) % Neut % (Auto) % Lymph % (Auto) % Rich % (Auto) % Eos % (Auto) % Baso % (Auto) % Neut # (Auto) (1.40-6.50) K/uL Lymph # (Auto) (1.2-3.4) K/uL Rich # (Auto) (0.11-0.59) K/uL Eos # (Auto) (0-0.50) K/uL Baso # (Auto) (0-0.2) K/uL Immature Gran # (Auto) (0.01-0.20) K/uL Sodium (136-145) mmol/L Potassium (3.5-5.1) mmol/L Chloride (98-107) mmol/L Carbon Dioxide (21-32) mmol/L Anion Gap (3-11) BUN (6-23) mg/dl Creatinine (0.6-1.2) mg/dl Est Cr Clr Drug Dosing Est GFR ( Amer) ml/min Est GFR (Non-Af Amer) ml/min BUN/Creatinine Ratio (10-20) Glucose (70-99(Fasting)) mg/dl Calcium (8.6-10.3) mg/dl Total Bilirubin (0.2-1.0) mg/dl AST (13-39) U/L ALT (7-52) U/L Alkaline Phosphatase (34-104) U/L Total Protein (6.0-8.3) gm/dl Albumin (3.4-5.0) gm/dl Globulin (2.5-4.0) gm/dl Albumin/Globulin Ratio (0.9-2) TSH (0.300-4.500) uIu/ml HCG, Qual (Negative) Urine Color Dark Yellow Urine Appearance Clear (Clear) Urine pH 5.5 (4.5-7.5) Ur Specific [place] 1.031 H (1.000-1.030) Urine Protein Negative (Negative) Urine Glucose (UA) Negative (Negative) Urine Ketones Trace H (Negative) Urine Blood Negative (Negative) Urine Nitrite Negative (Negative) Urine Bilirubin Negative (Negative) Urine Urobilinogen Negative (Negative) Ur Leukocyte Esterase Negative (Negative) POC Ur Test NEG (NEG) SARS-CoV-2, RNA, NAAT NEGATIVE (NEGATIVE) 05/17/22 05/17/22 05/17/22 Range/Units 17:47 17:47 17:47 WBC (4.8-10.8) K/ul RBC (4.20-5.40) M/uL Hgb (12.0-16.0) g/dl Hct (37.0-47.0) % MCV (80.0-100.0) fL MCH (25.0-34.0) pg MCHC (32.0-36.0) g/dL RDW Std Deviation (36.4-46.3) fL RDW Coeff of Denis (11.5-14.5) % Plt Count (130-400) K/uL MPV (9.4-12.4) fL Immature Gran % (Auto) % Neut % (Auto) % Lymph % (Auto) % Rich % (Auto) % Eos % (Auto) % Baso % (Auto) % Neut # (Auto) (1.40-6.50) K/uL Lymph # (Auto) (1.2-3.4) K/uL Rich # (Auto) (0.11-0.59) K/uL Eos # (Auto) (0-0.50) K/uL Baso # (Auto) (0-0.2) K/uL Immature Gran # (Auto) (0.01-0.20) K/uL Sodium 140 (136-145) mmol/L Potassium 3.7 (3.5-5.1) mmol/L Chloride 108 H (98-107) mmol/L Carbon Dioxide 25 (21-32) mmol/L Anion Gap 7 (3-11) BUN 11 (6-23) mg/dl Creatinine 0.62 (0.6-1.2) mg/dl Est Cr Clr Drug Dosing Not Reportable Est GFR ( Amer) 137.3 ml/min Est GFR (Non-Af Amer) 118.5 ml/min BUN/Creatinine Ratio 17.7 (10-20) Glucose 106 H (70-99(Fasting)) mg/dl Calcium 9.2 (8.6-10.3) mg/dl Total Bilirubin 0.4 (0.2-1.0) mg/dl AST 19 (13-39) U/L ALT 31 (7-52) U/L Alkaline Phosphatase 87 (34-104) U/L Total Protein 7.1 (6.0-8.3) gm/dl Albumin 4.3 (3.4-5.0) gm/dl Globulin 2.8 (2.5-4.0) gm/dl Albumin/Globulin Ratio 1.5 (0.9-2) TSH 3.142 (0.300-4.500) uIu/ml HCG, Qual Negative (Negative) Urine Color Urine Appearance (Clear) Urine pH (4.5-7.5) Ur Specific [place] (1.000-1.030) Urine Protein (Negative) Urine Glucose (UA) (Negative) Urine Ketones (Negative) Urine Blood (Negative) Urine Nitrite (Negative) Urine Bilirubin (Negative) Urine Urobilinogen (Negative) Ur Leukocyte Esterase (Negative) POC Ur Test (NEG) SARS-CoV-2, RNA, NAAT (NEGATIVE) 05/17/22 Range/Units 17:47 WBC 7.02 (4.8-10.8) K/ul RBC 4.50 (4.20-5.40) M/uL Hgb 12.2 (12.0-16.0) g/dl Hct 37.3 (37.0-47.0) % MCV 82.9 (80.0-100.0) fL MCH 27.1 (25.0-34.0) pg MCHC 32.7 (32.0-36.0) g/dL RDW Std Deviation 46.6 H (36.4-46.3) fL RDW Coeff of Denis 15.3 H (11.5-14.5) % Plt Count 203 (130-400) K/uL MPV 11.8 (9.4-12.4) fL Immature Gran % (Auto) 0.1 % Neut % (Auto) 75.5 % Lymph % (Auto) 15.7 % Rich % (Auto) 6.7 % Eos % (Auto) 1.4 % Baso % (Auto) 0.6 % Neut # (Auto) 5.30 (1.40-6.50) K/uL Lymph # (Auto) 1.10 L (1.2-3.4) K/uL Rich # (Auto) 0.47 (0.11-0.59) K/uL Eos # (Auto) 0.10 (0-0.50) K/uL Baso # (Auto) 0.04 (0-0.2) K/uL Immature Gran # (Auto) 0.01 (0.01-0.20) K/uL Sodium (136-145) mmol/L Potassium (3.5-5.1) mmol/L Chloride (98-107) mmol/L Carbon Dioxide (21-32) mmol/L Anion Gap (3-11) BUN (6-23) mg/dl Creatinine (0.6-1.2) mg/dl Est Cr Clr Drug Dosing Est GFR ( Amer) ml/min Est GFR (Non-Af Amer) ml/min BUN/Creatinine Ratio (10-20) Glucose (70-99(Fasting)) mg/dl Calcium (8.6-10.3) mg/dl Total Bilirubin (0.2-1.0) mg/dl AST (13-39) U/L ALT (7-52) U/L Alkaline Phosphatase (34-104) U/L Total Protein (6.0-8.3) gm/dl Albumin (3.4-5.0) gm/dl Globulin (2.5-4.0) gm/dl Albumin/Globulin Ratio (0.9-2) TSH (0.300-4.500) uIu/ml HCG, Qual (Negative) Urine Color Urine Appearance (Clear) Urine pH (4.5-7.5) Ur Specific [place] (1.000-1.030) Urine Protein (Negative) Urine Glucose (UA) (Negative) Urine Ketones (Negative) Urine Blood (Negative) Urine Nitrite (Negative) Urine Bilirubin (Negative) Urine Urobilinogen (Negative) Ur Leukocyte Esterase (Negative) POC Ur Test (NEG) SARS-CoV-2, RNA, NAAT (NEGATIVE) Diagnostic Findings KUB X-Ray 05/17/22 17:16 KUB HISTORY: constipated "fecal impaction" COMPARISON: Abdomen and pelvis CT 04/07/2022. KUB 05/18/2021. FINDINGS: The bowel gas pattern is unremarkable. There are no dilated loops of small bowel to suggest an obstruction. No renal calculi. No ureteral calculi. No pneumoperitoneum or pneumatosis. Moderate fecal retention again noted. Prior cholecystectomy and gastric bypass. IMPRESSION: 1. Nonobstructive bowel gas pattern. 2. Moderate fecal retention, unchanged. Abdomen/Pelvis CT 05/17/22 18:[address] WITH IV CONTRAST CT DOSE: 997.97 mGy.cm HISTORY: lower abd pain TECHNIQUE: Multiaxial CT images of the abdomen and pelvis were performed following the use of intravenous contrast. A dose lowering technique was utili zed adhering to the principles of ALARA. COMPARISON STUDY: Abdomen and pelvis CT 04/07/2022. FINDINGS: There are trace bilateral pleural effusions. Mild dependent changes seen within the lungs posteriorly. No pneumoperitoneum. No pneumatosis. No acute fractures identified. There is mild body wall edema. Prior Lenore-en-Y gastric bypass. Cholecystectomy. Ill-defined hypodense area within the central liver adjacent to the jaziel hepatis likely represents focal fat. The main portal vein is patent. The pancreas, spleen, adrenal glands, and kidneys are unremarkable. No hydronephrosis. No retroperitoneal lymphadenopathy. Normal caliber abdominal aorta. The bladder is mildly distended. The uterus is unremarkable. 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 Focal moderate thickening within the rectum with perirectal fat stranding. This is best seen on images 376 through 405. There is also a focal stricture within the rectum on image 376. Proximal to this site of narrowing there is a large amount of stool within the mid to distal sigmoid colon which is mildly distended up to 7 cm. Therefore, this likely represents a partial large bowel obstruction. The transition point is due to the thickened rectum which could be due to a nonspecific proctitis or possibly a mass. The small bowel is normal in course and caliber. Normal appendix. IMPRESSION: 1. Focal moderate thickening within the rectum with perirectal fat stranding. There is an associated transition point within the rectum with a large amount of stool within the mildly distended mid to distal sigmoid colon seen proximal to the transition point. Therefore, this is consistent with a partial large bowel obstruction. The transition point could be due to a nonspecific proctitis or rectal mass. Endoscopy recommended for further evaluation. 2. Trace bilateral pleural effusions. 3. Normal appendix. 4. Right ovarian dermoid, unchanged. Resident Activity Tracking Resident Involvement: Resident Care Provided Care Provided: [facility]
[2022-05-18] MEDS ORDERED: PANTOprazole 40 MG in SYRINGE 0 ML IV SCH (11:00)
--- NOTE | 2022-05-18 11:12 | Surgery Progress Note ---
Date of Service May 18, 2022 Assessment & Plan (1) Large bowel obstruction: Plan: She remained stable without abdominal pain We will follow-up on GIs flexible sigmoidoscopy Admission and Anticipated Discharge Date Admission Date: May 17, 2022 Subjective Patient seen and examined. Denies abdominal pain. Still has not had a bowel movement since admission. Passing minimal flatus. No nausea or vomiting. Afebrile. Review of Systems Constitutional: no fever and no chills Physical Exam Constitutional: WD/WN, vitals as above Gastrointestinal (Abdomen): Inspection/Auscultation: abdomen normal to inspection; abdomen not distended Percussion/Palpation: abdomen soft; no guarding Results & Data Vital Signs (Past 12 Hours) Vital Signs Temp Pulse Resp BP Pulse Ox O2 Del Method 05/18/22 08:13 37.3 C 55 L 15 116/80 94 Room Air PG Care Time/CCT Total # of Minutes Spent Total Time Spent with Patient: Total time spent is greater than 50% in coordination of care (as documented) at patient's floor/unit and/or counseling patient: Coding Level of Care Code 91896 SUB INP/OBS CARE 25MIN Diagnoses Large bowel obstruction K56.609
--- NOTE | 2022-05-18 11:39 | Anesthesiology Consultation ---
Date of Service May 18, 2022 Assessment & Plan Chart Review Chart Review: Acceptable Risk for Surgery and Patient NOT seen in Pre Admission Testing Consults Requested none ASA ASA3 Proposed Anesthesia Anesthesia Type: MAC History Surgery Operation Date: 05/18/22 16:30 Proposed Procedures p Flexible Sigmoidoscopy Dr White - Candido White MD Height/Weight Height: 5 ft 5 in Weight: 107.7 kg Allergies Allergy/AdvReac Type Severity Reaction Status Date / Time morphine Allergy Intermediate ITCHY AND Verified 05/17/22 18:59 CHEST PAIN glyburide AdvReac Intermediate BLACK OUT Verified 05/17/22 18:59 oxycodone [From Percocet] AdvReac Mild Nausea Verified 05/17/22 18:59 Medications Home Medications Medication Instructions Recorded Confirmed Last Taken blood sugar diagnostic (OneTouch #10 ea 06/09/20 04/26/22 Unknown Ultra Blue Test Strip) CPAP Machine #1 ea 03/28/21 04/26/22 Unknown citalopram 20 mg tablet (Celexa) 20 mg PO QAM #90 tabs 05/24/21 05/17/22 05/17/22 flash glucose sensor (FreeStyle #1 ea 07/10/21 04/26/22 Unknown Raina 14 Day Sensor kit) acetaminophen 325 mg tablet 975 mg PO Q6H PRN Pain 03/19/22 05/17/22 Unknown omeprazole 20 mg capsule,delayed 20 mg PO DAILY 03/19/22 05/17/22 05/17/22 release simethicone 80 mg chewable tablet 160 mg PO Q6H PRN GI UPSET/GAS 03/19/22 05/17/22 Unknown DISCOMFORT citalopram 10 mg tablet 10 mg PO DAILY #30 tabs 03/22/22 05/17/22 05/17/22 metoclopramide HCl 10 mg tablet 10 mg PO Q8H PRN nausea and 04/07/22 05/17/22 Unknown (Reglan) vomiting #12 tabs cholecalciferol (vitamin D3) 125 125 mcg PO DAILY 04/26/22 05/17/22 05/17/22 mcg (5,000 unit) capsule multivitamin with iron 1 tab PO BID 04/26/22 05/17/22 05/17/22 08:00 calcium carbonate 600 mg-vitamin 1 tab PO TIDM 05/17/22 05/17/22 05/17/22 08:00 D3 10 mcg (400 unit) tablet (Calcium 600 + D(3)) Active Medications Generic Name Dose Route Start Last Admin Trade Name Kipq PRN Reason Stop Dose Admin Sodium Chloride 1,000 mls @ 150 mls/hr 05/17/22 22:18 05/18/22 04:57 Nss 1000ml IV 06/16/22 22:17 150 mls/hr .Q6H40M OLGA Administration Ondansetron HCl 4 mg 05/17/22 22:18 05/18/22 04:57 Ondansetron Inj 2 Mg/Ml 2 Ml Vial IV 06/16/22 22:17 4 mg Q6H PRN Administration Nausea Past Medical History Medical History Anxiety Depression Diabetes type 2, controlled GERD (gastroesophageal reflux disease) hx-"issues in the past, nothing currently"-CONTROLLED Irritable bowel syndrome Migraines hx-last one 3 months ago Morbid obesity Ovarian cyst LEFT PCOS (polycystic ovarian syndrome) Sciatica B/L (L>R) Sleep apnea cpap Exercise / Class Metabolic Activity II 4-5 Yardwork/Stairs/Walk up hill Past Family History Family History Mother Diabetes Endometrial cancer Father Diabetes Myocardial infarction Aunt Diabetes Uncle Diabetes Grandmother (Maternal) Diabetes Father No problems noted. Family/Other BRCA positive maternal cousin Other Gallbladder disease Heart disease Hypertension Kidney disease Seizures Denies family history of Ovarian cancer Prostate cancer Breast cancer Colorectal cancer Past Surgical History Surgical History History of cholecystectomy History of colonoscopy History of salpingoophorectomy left History of wisdom tooth extraction Hx of spinal fusion c4-c5, done at [facility]; ROM "is pretty good, as long as tip head back too far" S/P gastric bypass Past Anesthesia History No Hx of Anesthesia Complications and No Family Hx of Anesthesia Complications History of PONV No Hx of PONV and No Hx of Motion Sickness Social History Smoking Status: Former smoker tobacco type: cigarettes Smoking cigarettes per day: 10-20; INTERMITTENT X 11 YEARS Do You Dip or Chew Tobacco: No Hx Alcohol Use: No alcohol intake frequency: holidays/special occasions only Hx Substance Use: No substance use type: does not use Physical Exam Vital Signs Last Vital Signs Temp 37.3 C 05/18/22 08:13 Pulse 55 L 05/18/22 08:13 Resp 15 05/18/22 08:13 BP 116/80 05/18/22 08:13 Pulse Ox 94 05/18/22 08:13 O2 Del Method Room Air 05/18/22 08:13 Testing Laboratory Results 05/17/22 17:47 05/17/22 17:47 Urine Color Dark Yellow 05/17/22 17:55 Urine Appearance Clear (Clear) 05/17/22 17:55 Urine pH 5.5 (4.5-7.5) 05/17/22 17:55 Ur Specific [place] 1.031 (1.000-1.030) H 05/17/22 17:55 Urine Protein Negative (Negative) 05/17/22 17:55 Urine Glucose (UA) Negative (Negative) 05/17/22 17:55 Urine Ketones Trace (Negative) H 05/17/22 17:55 Urine Nitrite Negative (Negative) 05/17/22 17:55 Ur Leukocyte Esterase Negative (Negative) 05/17/22 17:55 Electrocardiogram Date: 04/07/22 Findings: + SB @ (@ 54)
--- NOTE | 2022-05-18 12:09 | Gastrointestinal Consultation ---
Date of Consultation May 18, 2022 Assessment & Plan (1) Abnormal CT scan, gastrointestinal tract: There is suggestion of partial sigmoid lesion, possible etiologies include volvulus, constipation, colon cancer, stricturing Crohn's disease. Plan 1. Enemas x2 today. 2. Plan for flex sig this afternoon. 3. N.p.o. for now. Further recommendations to follow flex sig. Supervising Physician Co-Signing Physician Notes I performed a history and physical examination of the patient today, including specifically on physical exam - soft abdomen. I have discussed the patient's management with the advanced practitioner. Please refer to the nurse practitioner's note for the documented findings and plan of care. Flex sig today,. History of Present Illness Reason for Consultation: Large [place] obstruction Requesting Physician: Dr. Garcia Attending Physician: Miguel Robertson, History of Present Illness Ms. Rachel Tariq is a 32-year-old female patient of Dr. Leo Pak with a history of DM 2, obesity status post gastric bypass in [place] in 2021, migraines, anxiety depression. She presented to the emergency department for abdominal pain. CT scan was suggestive of a sigmoid colon obstruction. She reports tending toward constipation at baseline. On Saturday she felt bloated took a dose of milk of magnesia on apparently had small liquid bowel movements so use a saline enema also with the same response. Yesterday because she had not had a significant bowel movement and continued with abdominal bloating she presented to the emergency department. She has had mild intermittent nausea but not worse than her baseline since having gastric bypass. No vomiting. She continues to pass small amounts of stool approximately a few tablespoon size of liquid stool intermittently a few times to 8/day and is passing small amounts of rectal gas. No blood in her bowel movements. No black tarry bowel movements. No fevers chills sweats. No sick contacts. No prior colonoscopy. Allergies Allergy/AdvReac Type Severity Reaction Status Date / Time morphine Allergy Intermediate ITCHY AND Verified 05/18/22 12:26 CHEST PAIN glyburide AdvReac Intermediate BLACK OUT Verified 05/18/22 12:26 oxycodone [From Percocet] AdvReac Mild Nausea Verified 05/18/22 12:26 Home Medications Medication Instructions Recorded Confirmed Type blood sugar diagnostic (taggaTouch #10 ea 06/09/20 04/26/22 History Ultra Blue Test Strip) CPAP Machine #1 ea 03/28/21 04/26/22 Rx citalopram 20 mg tablet (Celexa) 20 mg PO QAM #90 tabs 05/24/21 05/17/22 Rx flash glucose sensor (FreeStyle #1 ea 07/10/21 04/26/22 Rx Raina 14 Day Sensor kit) acetaminophen 325 mg tablet 975 mg PO Q6H PRN Pain 03/19/22 05/17/22 History omeprazole 20 mg capsule,delayed 20 mg PO DAILY 03/19/22 05/17/22 History release simethicone 80 mg chewable tablet 160 mg PO Q6H PRN GI UPSET/GAS 03/19/22 05/17/22 History DISCOMFORT citalopram 10 mg tablet 10 mg PO DAILY #30 tabs 03/22/22 05/17/22 Rx metoclopramide HCl 10 mg tablet 10 mg PO Q8H PRN nausea and 04/07/22 05/17/22 Rx (Reglan) vomiting #12 tabs cholecalciferol (vitamin D3) 125 125 mcg PO DAILY 04/26/22 05/17/22 History mcg (5,000 unit) capsule multivitamin with iron 1 tab PO BID 04/26/22 05/17/22 History calcium carbonate 600 mg-vitamin 1 tab PO TIDM 05/17/22 05/17/22 History D3 10 mcg (400 unit) tablet (Calcium 600 + D(3)) ondansetron HCl 4 mg tablet 4 mg PO Q6H PRN nausea and 05/18/22 Rx vomiting #20 tabs polyethylene glycol 3350 17 85 g PO DAILY 4 days #340 grams 05/18/22 Rx gram/dose oral powder (Miralax) Patient History Medical History Anxiety Depression Diabetes type 2, controlled GERD (gastroesophageal reflux disease) hx-"issues in the past, nothing currently"-CONTROLLED Irritable bowel syndrome Migraines hx-last one 3 months ago Morbid obesity Ovarian cyst LEFT PCOS (polycystic ovarian syndrome) Sciatica B/L (L>R) Sleep apnea cpap Surgical History History of cholecystectomy History of colonoscopy History of salpingoophorectomy left History of wisdom tooth extraction Hx of spinal fusion c4-c5, done at [facility]; ROM "is pretty good, as long as tip head back too far" S/P gastric bypass Family History Mother Diabetes Endometrial cancer Father Diabetes Myocardial infarction Aunt Diabetes Uncle Diabetes Grandmother (Maternal) Diabetes Father No problems noted. Family/Other BRCA positive maternal cousin Other Gallbladder disease Heart disease Hypertension Kidney disease Seizures Denies family history of Ovarian cancer Prostate cancer Breast cancer Colorectal cancer Social History Smoking Status: Former smoker Tobacco Type: Cigarettes Cigarettes Per Day: 10-20; INTERMITTENT X 11 YEARS; Second Hand Exposure: No; Hx Alcohol Use: No Hx Substance Use: No Preferred Language: Tajik Communication Ability: Effective Visual Impairment: No Limitations Hearing Ability: Normal [place] Required: No Beliefs That Will Affect Care: None marital status: marital status details: Jhonathan Tariq 32, Current Living Situation: Spouse Current Living Situation Comment: lives with and children, 1dog current occupational status: employed 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 Physical Exam Constitutional: WD/WN, vitals as above Eyes: PERRL, conjunctivae normal, anicteric sclerae ENMT: external ear and nose normal, oropharynx normal Neck: trachea midline, no thyromegaly Respiratory: normal respiratory effort, lungs clear to auscultation Cardiovascular: RRR, no murmur, no edema Gastrointestinal (Abdomen): Soft, mild distention, normal active bowel sounds, no palpable masses. Mildly tender in the left midabdomen and left lower quadrant. Skin: no rashes, warm and dry (Except there is a small red petechial rash on her left upper arm + blanches) Neurologic: patellar DTR's 2+ bilat, sensation intact Lymphatic: no cervical or axillary lymphadenopathy Results & Data Vital Signs (Past 12 Hours) Vital Signs Temp Pulse Resp BP Pulse Ox O2 Del Method 05/18/22 08:13 37.3 C 55 L 15 116/80 94 Room Air Laboratory Results WBC 7.02, Hb 12.2, HCT 37.3, PLT S207, PT 10, INR 1, NA 140, K3.7, CL 108, CO2 25, BUN 11, CR 0.62, glucose 106 Diagnostic Findings CTAP w IV 05/17/22 1. Focal moderate thickening within the rectum with perirectal fat stranding. There is an associated transition point within the rectum with a large amount of stool within the mildly distended mid to distal sigmoid colon seen proximal to the transition point. Therefore, this is consistent with a partial large bowel obstruction. The transition point could be due to a nonspecific proctitis or rectal mass. Endoscopy recommended for further evaluation. 2. Trace bilateral pleural effusions. 3. Normal appendix. 4. Right ovarian dermoid, unchanged.
--- NOTE | 2022-05-18 12:14 | History & Physical Bridge Note ---
Date of Service May 18, 2022 History & Physical Bridge Note I have examined the patient, reviewed the History & Physical and in the interval since the performance of the History & Physical I have noted the following changes of clinical significance: no changes noted Flex Sig Patient was explained in detail regarding risks, benefits, limitations and alternatives of the above endoscopic procedure. Risks of intravenous sedation used for procedure were also explained. Risks include, but not limited to perforation, bleeding, infection, respiratory distress, cardiac arrest and . Patient is also aware about the possibility of missed lesion. Patient's questions were answered. The patient verbalized understanding the information and agreed to undergo the procedure.
[2022-05-18] MEDS ORDERED: LIDOCAINE 2% MPF LOCAL 5 ML VIAL ONE (12:15)
[2022-05-18] MEDS ORDERED: PROPOFOL IV EMULSION 10 MG/ML 20 ML VIAL IV ONE (12:15)
[2022-05-18] MEDS ORDERED: ATROPINE SULFATE 0.1 MG/ML 10ML SYR IV PRN (12:16)
[2022-05-18] MEDS ORDERED: ePHEDrine sulfate 50 MG/ML AMP IV PRN (12:16)
--- NOTE | 2022-05-18 12:42 | GI REPORT ---
Patient Name: Rachel Tariq Procedure Date: 05/18/2022 12:17 PM Date of : 1990 Admit Type: Inpatient Age: 32 Gender: Female Attending MD: Candido White MD, Procedure: Flexible Sigmoidoscopy Providers: Candido White MD Referring MD: Miguel Robertson Indications: Abnormal CT of the GI tract Medicines: Propofol per Anesthesia Complications: No immediate complications. Estimated Blood Loss: Estimated blood loss: none. Procedure: Pre-Anesthesia Assessment: - Prior to the procedure, a History and Physical was performed, and patient medications, allergies and sensitivities were reviewed. The patient's tolerance of previous anesthesia was reviewed. - The risks and benefits of the procedure and the sedation options and risks were discussed with the patient. All questions were answered and informed consent was obtained. - Patient identification and proposed procedure were verified prior to the procedure by the physician and the nurse. The procedure was verified in the procedure room. - Pre-procedure physical examination revealed no contraindications to sedation. After obtaining informed consent, the endoscope was passed under direct vision. Throughout the procedure, the patient's blood pressure, pulse, and oxygen saturations were monitored continuously. The Endoscope was introduced through the anus and advanced to the descending colon. The flexible sigmoidoscopy was accomplished without difficulty. The patient tolerated the procedure well. The quality of the bowel preparation was poor. Findings: The perianal and digital rectal examinations were normal. A large amount of solid stool was found in the rectum, in the sigmoid colon and in the descending colon. No evidence of any stenosis or obvious colitis. Impression: - Preparation of the colon was poor. Scope passed easily to the descending colon with no evidence of any strictures. Recommendation: - Return patient to hospital [facility] for ongoing care. - Laxatives. - Schedule full colonoscopy electively as outpatient. - Recall GI if needed. Candido White MD 05/18/2022 12:42:01 PM This report has been signed electronically. Note Initiated On: 05/18/2022 12:17 PM Number of Addenda: 0 I attest to the content of the Intraoperative Record and orders documented therein, exceptions below {[id number]}
--- NOTE | 2022-05-18 13:08 | Anesthesiology Progress Note ---
Date of Service May 18, 2022 Anesthesia Post Procedure Vital Signs Vital Signs: Temp Pulse Pulse Pulse Resp BP BP 05/18/22 12:57 61 16 132/82 05/18/22 12:42 58 L 16 121/67 05/18/22 12:20 36.8 C 58 L 16 133/72 05/18/22 08:13 37.3 C 55 L 15 116/80 05/17/22 22:08 36.8 C 63 18 05/17/22 20:07 66 18 05/17/22 17:12 36.5 C 81 20 165/86 H BP Pulse Ox O2 Del Method 05/18/22 12:57 98 Room Air 05/18/22 12:42 100 Room Air 05/18/22 12:20 97 Room Air 05/18/22 08:13 94 Room Air 05/17/22 22:08 122/80 99 Room Air 05/17/22 20:07 145/84 H 99 Room Air 05/17/22 17:12 97 Room Air Transfer of Care Handoff Completed per policy Notes Mental Status: alert / awake / arousable Patient Amnestic to Procedure: Yes Nausea / Vomiting: adequately controlled Pain: adequately controlled Airway Patency, RR, SpO2: stable & adequate BP & HR: stable & adequate Hydration State: stable & adequate Anesthetic Complications: no major complications apparent
[2022-05-18] MEDS ORDERED: POLYETHYLENE (MIRALAX) 17 GM PACK PO STA (13:21)
--- NOTE | 2022-05-18 14:02 | Discharge Summary ---
Date of Service May 18, 2022 Admission HPI Per Admitting Provider 32 yo female with PMHx metabolic syndrome, PCOS, depression, anxiety, binge eating disorder, sleep apnea, IBS, migraines, GERD, DM2, gastric bypass surgery presented with 2 days of constipation. Associated abdominal discomfort and bloating with mild nausea. Denies fevers, fatigue, chest pain, sob, dysuria, vomiting. Tried taking milk of magnesia yesterday and fleet enema without resolve. Of note, pt had gastric bypass surgery Feb 2022 and since BMs have been regular until now. Admission Exam Per Admitting Provider Constitutional: in no acute distress, pleasant. AOx3. Vitals as above. HEENT: No scleral injection or discharge. Moist mucous membranes. Neck: Supple without lymphadenopathy or thyromegaly. Trachea midline. Lungs: Clear to auscultation bilaterally with good effort. Cardiac: Regular rate and rhythm. No murmurs.No extremity edema. 2+ distal peripheral pulses. Abdomen: Hypoactive bowel sounds. Soft and nondistended.Mildly tender LLQ. No guarding or rebound tenderness. No hepatosplenomegaly. MSK: No cyanosis or clubbing. Extremities motor strength 5/5. Skin: No rashes, warm, dry. Neurologic: no focal deficits Principal Diagnosis constipation Discharge Exam Gen: well appearing female in NAD HEENT: AT NC Resp: CTAB no wheezing no increased work of breathing CV: RRR no m/r/g clinically well perfused Abd: soft, non-tender, mildly distended, + BS Psych: appropriate mood and affect Neuro: alert and oriented Skin: no rashes or bruising MSK: no gross deformities Discharge Data Allergies Allergy/AdvReac Type Severity Reaction Status Date / Time morphine Allergy Intermediate ITCHY AND Verified 05/18/22 12:26 CHEST PAIN glyburide AdvReac Intermediate BLACK OUT Verified 05/18/22 12:26 oxycodone [From Percocet] AdvReac Mild Nausea Verified 05/18/22 12:26 Consultations 05/17/22 20:36 Consult Gastroenterology Routine 05/17/22 20:38 Consult General Surgery Routine 05/17/22 21:30 ED Decision to Admit Stat Procedures Performed Operation Date: 05/18/22 16:30 Actual Procedures p Flexible Sigmoidoscopy - Candido White MD Ordered Studies 05/17/22 18:04 CT Abd and Pelvis [CT abd pelvis IV con only] Stat Hospital Course (1) Large bowel obstruction: 32 yo female with PMHx metabolic syndrome, PCOS, depression, anxiety, binge eating disorder, cholecystectomy, sleep apnea, IBS, migraines, GERD, DM2, gastric bypass surgery presented with 2 days of constipation. #Large bowel obstruction #h/o gastric bypass surgery (Feb 2022) #h/o binge eating disorder #Constipation 2 days constipation with abd discomfort despite laxative use. Suspicion of LBO 2/2 proctitis or rectal mass. GI and surg consulted. Resume home meds and regular diet on discharge. Would recommend aggressive Miralax to help with stool burden. Will also give zofran to help with nausea. F/u with PCP. Workup: CT A/P: Focal moderate thickening within the rectum with perirectal fat stranding. Associated transition point within the rectum with a large amount of stool within the mildly distended mid to distal sigmoid colon seen proximal to the transition point. Flexible sigmoidoscopy - no masses, significant stool burden DVT ppx: SCDs, ambulation FEN/GI: NPO, IVF @ 150 ml/hr Code Status: Full Dispo: med surg, anticipate dispo home - self care (2) Depression with anxiety: (3) Binge eating disorder: (4) Severe obstructive sleep apnea: (5) PCOS (polycystic ovarian syndrome): (6) Irritable bowel syndrome: (7) Migraines: (8) GERD (gastroesophageal reflux disease): (9) Diabetes type 2, controlled: (10) Morbid obesity: Total Time Total Time Spent Total Time Spent (In Minutes): see attending attestation Discharge Plan Discharge Items Patient Disposition: Home - Self-Care Reason For Visit: CONSTIPATION, LARGE BOWEL OBSTRUCTION Discharge Diagnosis: constipation Activity: Per Instructions section Non-emergency contact: Primary Care Provider and Harness Installer Call non-emergency contact if: your symptoms worsen and your temperature is above 101.5 Follow-up/Referrals: Leo Pak DO [Primary Care Provider] - 05/22/22 9:20 am Diet: Regular Addtl Attending Provider Instructions: You were admitted to the hospital for constipation. You were evaluated with a sigmoidoscopy which showed a significant stool burden. Would recommend aggressive use of Miralax. Start with 85 g today. Can take more if this fails to provide relief. A discharge summary will be sent to your primary care physician to ensure continuity of care. Please bring this discharge summary with you to your next office appointment so that your provider can review it at that time. Follow-up appointments: We have requested a follow-up appointment with your primary care physician within one week of discharge. Please call their office if you do not hear from them. Keep all your follow-up appointments as already scheduled. If you cannot make an appointment, notify your provider. Medications: Your medication list has been reviewed and reconciled upon discharge to ensure accuracy and continuity of care. An updated list of all your medications is included with your hospital discharge paperwork. Please review this list closely, and make note of any changes. We sent a new medication called Miralax. Take 85 g today. Can take 17 g every 2-3 hours until it provides relief. If you have any issues filling these prescriptions, please call [phone] and ask to leave a message for Dr. Ugalde. Take your medications as instructed; do not skip a dose of your medicines. Make sure all of your doctors know every medicine you are taking (including [id number] medicines, vitamins, and supplements). Call your primary care provider before taking any new medicines (including over- the- counter medicines, vitamins, and supplements), because some of these may interact with your current medications, or may make your symptoms worse. Tell your primary care provider if you cannot afford your medications. CONTACT YOUR PRIMARY CARE PROVIDER if you experience any of the following: worsening pain or nausea, blood in the stool or vomit fevers or chills difficulty following your treatment plan, or difficulty taking medications CALL 911 OR GO TO THE EMERGENCY DEPARTMENT if you experience any of the following: Sudden, severe abdominal pain or nausea/vomiting Severe chest pain, or chest pain that radiates (moves) to your jaw or arm Sudden, severe shortness of breath or difficulty breathing Thank you for allowing us to participate in your care Pending Studies at Discharge: No Stand-Alone Forms: My [employer], Smoking Cessation Medications and DC Order Prescriptions: New polyethylene glycol 3350 [Miralax] 17 gram/dose powder 85 g PO DAILY 4 Days Qty: 340 0RF ondansetron HCl 4 mg tablet 4 mg PO Q6H PRN (Reason: nausea and vomiting) Qty: 20 0RF Continued citalopram 10 mg tablet 10 mg PO DAILY Qty: 30 2RF Rx Instructions: take with 20mg tablet to total 30mg daily acetaminophen 325 mg tablet 975 mg PO Q6H PRN (Reason: Pain) omeprazole 20 mg capsule,delayed release(DR/EC) 20 mg PO DAILY simethicone 80 mg tablet,chewable 160 mg PO Q6H PRN (Reason: GI UPSET/GAS DISCOMFORT) citalopram [Celexa] 20 mg tablet 20 mg PO QAM Qty: 90 1RF Rx Instructions: TOTAL DOSE 30 MG--TAKES WITH 10 MG TAB. cholecalciferol (vitamin D3) 125 mcg (5,000 unit) capsule 125 mcg PO DAILY multivitamin with iron Tablet 1 tab PO BID (DME) CPAP Machine Misc See Rx Instructions .MEDSUPPLY Qty: 1 0RF Rx Instructions: CPAP 9 cm water pressure C flex setting #1 with heated humidfication, tubing, and supplies. ANNETTE: 99+ years. (DME) FreeStyle Raina 14 Day Sensor Kit See Rx Instructions miscellaneous .MEDSUPPLY Qty: 1 5RF Rx Instructions: As directed (DME) OneTouch Ultra Blue Test Strip Strip See Rx Instructions .ROUTE .MEDSUPPLY Qty: 10 Rx Instructions: As directed calcium carbonate-vitamin D3 [Calcium 600 + D(3)] 600 mg-10 mcg (400 unit) Tablet 1 tab PO TIDM metoclopramide HCl [Reglan] 10 mg tablet 10 mg PO Q8H PRN (Reason: nausea and vomiting) Qty: 12 0RF Discharge Orders: Discharge Order (Routine); Ordered 05/18/22 Ordered By: Nuria Mcneil/Other Patient Handouts: Large Bowel Obstruction Admission Data Admit Date/Time: 05/17/22 20:35 Attending Provider: Miguel Robertson Admit Provider: Richard Garcia Primary Care Provider: Leo Pak Other Providers: Sanjeev Doyle ; Petty Lucia ; Mk Rueda Other Interventions: Discharge Summary Assessment (RN) Last Done: 05/18/22 13:20 Supervising Physician Co-Signing Physician Notes I personally examined the patient and verified all watkins points of history and exam, discussed case, and agree with decision making with Dr Ugalde seen post scope. really wants to go home. feels that she'll do OK - discussed bowel regimen vitals noted nad heent nc at mmm breathing unlabored no accessory muscles good effort skin no rashes no pallor or icterus constipation - fortunately no large bowel obstruction on scope. bowel regimen. OK for home. outpt f/u otherwise as above Resident Activity Tracking Resident Involvement: Resident Care Provided Care Provided: Adult Hospital Medicine
--- NOTE | 2022-05-18 17:58 | Billing Data ---
Date of Service May 18, 2022 Coding Level of Care Code 80210 IN/OBS DISCH 30 MIN/LESS
--- NOTE | 2022-05-19 19:13 | Billing Data ---
Date of Service May 19, 2022 Coding Level of Care Code 36965 INT INP/OBS CARE
== END 2022-05-18 15:01 | disposition home or self-care (01) | DRG 392 ==
LOC: ED 17:09 → SUATTDRO 20:35 → 3W 20:35